=== PATIENT | female | born 1955 | race Caucasian/White ===

== ENCOUNTER → 2016-12-11 | Outpatient (CLI) | payer MEDICARE, OTHER ==
[~2016-12-11] MED LIST: ACET-93 PO; ASCO10006 PO; AZAT100T PO; BENLYSTA; CALC-140 PO; CHLO4TAB36 PO; DOCU100C37 PO; DOXY100C2 PO; FLEC100T PO; GABA-488 PO; HYDR-3812 PO; HYDR200T PO; IPRA3AMP IH; LORA-404 PO; METH750T3 PO; OMEP20TA33 PO; ONDA-42 SL; PRED5TAB PO; PSEU30TA37 PO; RT-ALBUINH IH; TRIM100T PO; WARF-47 PO; WARF-48 PO; cpap; oxygen; vit b12
--- OUTSIDE RECORDS SUMMARY | 2016-12-11 10:51 | XMS REPORT | Continuity of Care Document ---
Author Author [facility] Organization [facility] Address Unknown Phone Unavailable Care Team Providers Care C D Reactor Operator Name Role Phone NO, LOCAL PHYSICIAN PCP Unavailable Insurance Providers Payer Name Policy Number Subscriber Name Relationship Unknown Advance Directives Directive Response Recorded Date/Time Advance Directives No 02/27/15 8:57am Organ Donor No 02/27/15 8:57am Resuscitation Status Full Code 02/27/15 8:57am Problems Medical Problems Problem Onset Date Status Concussion without loss of consciousness Unknown Active Chest wall pain Unknown Active Nausea Unknown Active Medications Medication Dose Route Sig Days/Qty Instructions Order Date Discontinued Date Status Ondansetron Hcl 4 Mg SL EVERY 4HRS PRN NAUSEA/VOMITING 10 Qty FOR NAUSEA AND VOMITING 02/27/15 Active Social History Social History Problem Response Recorded Date/Time Alcohol Use Denies Use 02/27/2015 8:57am Recreational Drug Use No 02/27/2015 8:57am Recent Foreign Travel No 02/27/2015 8:57am Recent Infectious Disease Exposure No 02/27/2015 8:57am Hospitalization with Isolation Denies 02/27/2015 8:57am Smoking Status Never a Smoker 02/27/2015 8:57am Query Response Start Date Stop Date Smoking Status Never a Smoker Hospital Discharge Instructions No hospital discharge instructions. Plan of Care No plan of care. Functional Status No functional status results. Allergies, Adverse Reactions, Alerts Allergen Type Severity Reaction Status Last Updated NSAIDS (Non-Steroidal Anti-Inflammatory Drug) (L415690966) Allergy Unknown Active 02/27/15 Sulfa (Sulfonamide Antibiotics) (H891864029) Allergy Unknown Active Codeine Allergy Unknown Active 04/27/15 Cephalexin Allergy Unknown Active 02/27/15 Tramadol Allergy Unknown Active 02/27/15 Levofloxacin Allergy Unknown Active 02/27/15 ENVIRONMENTAL Allergy Unknown Active 02/27/15 PCN Allergy Unknown Active 02/27/15 Immunizations No immunization records. Vital Signs Acute Vital Signs Vital Response Date/Time Temperature (Fahrenheit) 98.1 degrees F (97.6 - 99.5) Temperature (Calculated Celsius) 36.69688 degrees C (36.4 - 37.5) Pulse Rate (adult) 88 bpm (60 - 90) Respiratory Rate 20 bpm (12 - 24) O2 Sat by Pulse Oximetry 92 % (88 - 100) Blood Pressure 149/72 mm Hg Pain Pain Intensity 9 Height (Feet) 5 feet Height (Inches) 6 inches Height (Calculated Centimeters) 167.212930 cm Weight (Pounds) 205 pounds Weight (Calculated Kilograms) 92.297103 kilograms Calculated BMI 33.08 Results Laboratory Results Test Name Result Units Flags Reference Collection Date/Time Result Date/ Time Comments White Blood Count 5.9 10^3/uL 4.3-11.0 02/27/2015 9:51am 02/27/2015 10: 02am Red Blood Count 4.23 10^6/uL L 4.35-5.85 02/27/2015 9:51am 02/27/2015 10: 02am Hemoglobin 11.0 G/DL L 11.5-16.0 02/27/2015 9:51am 02/27/2015 10:02am Hematocrit 37 % 35-52 02/27/2015 9:51am 02/27/2015 10:02am Mean Corpuscular Volume 87 FL 80-99 02/27/2015 9:51am 02/27/2015 10: 02am Mean Corpuscular Hemoglobin 26 PG 25-34 02/27/2015 9:51am 02/27/2015 10 :02am Mean Corpuscular Hemoglobin Concent 30 G/DL L 32-36 02/27/2015 9:51am 10:02am Red Cell Distribution Width 16.3 % H 10.0-14.5 02/27/2015 9:51am 2014 10:02am Platelet Count 288 10^3/uL 130-400 02/27/2015 9:02/27/2015 10: 02am Mean Platelet Volume 9.7 FL 7.4-10.4 02/27/2015 9:am 02/27/2015 10: 02am Neutrophils (%) (Auto) 79 % H 42-75 02/27/2015 9:02/27/2015 10:02am Lymphocytes (%) (Auto) 13 % 12-44 02/27/2015 9:am 02/27/2015 10:02am Monocytes (%) (Auto) 7 % 0-12 02/27/2015 9:am 02/27/2015 10:02am Eosinophils (%) (Auto) 1 % 0-10 02/27/2015 9:am 02/27/2015 10:02am Basophils (%) (Auto) 0 % 0-10 02/27/2015 9:02/27/2015 10:02am Neutrophils # (Auto) 4.7 X 10^3 1.8-7.8 02/27/2015 9:02/27/2015 10 :02am Lymphocytes # (Auto) 0.8 X 10^3 L 1.0-4.0 02/27/2015 9:02/27/2015 10 :02am Monocytes # (Auto) 0.4 X 10^3 0.0-1.0 02/27/2015 9:02/27/2015 10: 02am Eosinophils # (Auto) 0.1 10^3/uL 0.0-0.3 02/27/2015 9:02/27/2015 10:02am Basophils # (Auto) 0.0 10^3/uL 0.0-0.1 02/27/2015 9:02/27/2015 10: 02am Prothrombin Time 25.5 SEC H 12.2-14.7 02/27/2015 9:02/27/2015 10: 20am INR Comment 2.4 H 0.8-1.4 02/27/2015 9:02/27/2015 10:20am INTERPRETIVE DATA SUGGESTED THERAPEUTIC RANGE FOR INR'S: VENOUS THROMBOSIS, PULMONARY EMBOLISM, OR PREVENTION OF SYSTEMIC EMBOLISM (EG. IN ATRIAL FIBRILLATION): 2.0 - 3.0 MECHANICAL PROSTHETIC HEART VALVES: 2.5 - 3.5* *NOTE: INR'S UP TO 4.5 MAY BE NECESSARY IN SELECTED GROUPS OF HIGH RISK PATIENTS. [employer] CONSENSUS CONFERENCE ON ANTITHROMBOTIC THERAPY (2000). Activated Partial Thromboplast Time 42 SEC H 24-35 02/27/2015 9:51am 10:20am Sodium Level 141 MMOL/L 135-145 02/27/2015 9:51am 02/27/2015 10:28am Potassium Level 3.8 MMOL/L 3.6-5.0 02/27/2015 9:51am 02/27/2015 10: 28am Chloride Level 105 MMOL/L 98-107 02/27/2015 9:51am 02/27/2015 10:28am Carbon Dioxide Level 26 MMOL/L 21-32 02/27/2015 9:51am 02/27/2015 10: 28am Blood Urea Nitrogen 10 MG/DL 7-18 02/27/2015 9:51am 02/27/2015 10:28am Creatinine 0.99 MG/DL 0.60-1.30 02/27/2015 9:51am 02/27/2015 10:28am BUN/Creatinine Ratio 10 02/27/2015 9:51am 02/27/2015 10:28am Estimat Glomerular Filtration Rate 57 02/27/2015 9:51am 02/27/2015 10:28am GFR INTERPRETIVE DATA UNITS FOR ESTIMATED GFR (eGFR): mL/min/1.73 M2 REFERENCE RANGE FOR ESTIMATED GFR (eGFR) eGFR NORMAL eGFR >60 MODERATELY DECREASED eGFR 30-59 SEVERLY DECREASED eGFR 15-29 KIDNEY FAILURE <15 (OR DIALYSIS) Glucose Level 176 MG/DL H 70-105 02/27/2015 9:51am 02/27/2015 10:28am Calcium Level 9.3 MG/DL 8.5-10.1 02/27/2015 9:51am 02/27/2015 10:28am Total Bilirubin 0.5 MG/DL 0.1-1.0 02/27/2015 9:51am 02/27/2015 10:28am Alkaline Phosphatase 67 U/L 40-136 02/27/2015 9:51am 02/27/2015 10: 28am Aspartate Amino Transf (AST/SGOT) 18 U/L 5-34 02/27/2015 9:51am 2014 10:28am Alanine Aminotransferase (ALT/SGPT) 21 U/L 0-55 02/27/2015 9:51am 02/27 10:28am Total Protein 6.5 G/DL 6.4-8.2 02/27/2015 9:51am 02/27/2015 10:28am Albumin 3.7 G/DL 3.2-4.5 02/27/2015 9:51am 02/27/2015 10:28am Procedures No known history of procedures. Encounters Encounter Location Date/Time Departed Emergency Room [facility] 02/27/15 8:50am Recent Diagnosis
--- NOTE | 2016-12-11 15:18 | Diagnostic Imaging Report ---
PROCEDURE: CT chest without contrast. TECHNIQUE: Multiple contiguous axial images were obtained through the chest without the use of intravenous contrast. INDICATION: Dyspnea. COMPARISON: Comparison outside study loaded on our PACS dated 06/04/2016 is reviewed. FINDINGS: There are significant ground-glass opacities seen in the mid and lower lung zones, more prominent posteriorly, similar to 06/04/2016 exam. There is subpleural sparing. This is associated with interlobular septal thickening. The lack of significant change from 06/04/2016 and associated bronchiolectasis in the lower lobes is suggestive of interstitial scarring. Chronic inflammatory pneumonitis is a possibility. There are geographic areas of decreased density in the lungs which may relate to air trapping. There is no mass or suspicious nodule seen. The heart size is not enlarged. No pericardial or pleural effusion. The thoracic aorta is normal in caliber. No mediastinal mass. No significantly enlarged mediastinal or axillary lymph nodes seen. The arcenio are not opacified with contrast with no obvious soft tissue mass in the hilum seen. The osseous structures and sections in the upper abdomen appear grossly unremarkable. IMPRESSION: Lower lobe predominant ground-glass opacities and interlobular septal thickening with subpleural sparing seen without significant change from 06/04/2016 exam. Fibrotic components noted. The findings may relate to NSIP or chronic inflammatory pneumonitis with interstitial scarring. Correlate clinically. Dictated by: Dictated on workstation # [id number]
== END ==
LOC: RAD 10:48
PROVIDERS: ATTEND Nurse Practitioner Family
DX: R06.00 Dyspnea, unspecified (principal)
CPT/HCPCS: 71250

== ENCOUNTER 2016-12-30 05:41 | Outpatient (CLI) | payer MEDICARE, OTHER ==
[~2016-12-30] VITALS: Ht 167.6 cm; Wt 97.5 kg
[~2016-12-30 05:41] MED LIST changes: -BENLYSTA; -HYDR-3812 PO; -IPRA3AMP IH; -RT-ALBUINH IH; -cpap; -oxygen; -vit b12
--- OUTSIDE RECORDS SUMMARY | 2016-12-30 05:45 | XMS REPORT | Continuity of Care Document ---
Author Author [facility] Organization [facility] Address Unknown Phone Unavailable Care Team Providers Care Welder Journeyman Name Role Phone NO, LOCAL PHYSICIAN PCP [...] Status Last Updated NSAIDS (Non-Steroidal Anti-Inflammatory Drug) ([id number]) Allergy Unknown Active 02/27/15 Sulfa (Sulfonamide Antibiotics) ([id number]) Allergy Unknown Active Codeine Allergy Unknown Active 04/27/15 Cephalexin Allergy Unknown Active 02/27/15 Tramadol Allergy Unknown Active 02/27/15 Levofloxacin Allergy Unknown Active 02/27/15 ENVIRONMENTAL Allergy Unknown Active 02/27/15 PCN Allergy Unknown Active 02/27/15 Immunizations No immunization records. Vital Signs Acute Vital Signs Vital Response Date/Time Temperature (Fahrenheit) 98.1 degrees F (97.6 - 99.5) Temperature (Calculated Celsius) 36.72858 degrees C (36.4 - 37.5) Pulse Rate (adult) 88 bpm (60 - 90) Respiratory Rate 20 bpm (12 - 24) O2 Sat by Pulse Oximetry 92 % (88 - 100) Blood Pressure 149/72 mm Hg Pain Pain Intensity 9 Height (Feet) 5 feet Height (Inches) 6 inches Height (Calculated Centimeters) 167.485735 cm Weight (Pounds) 205 pounds Weight (Calculated Kilograms) 92.547898 kilograms Calculated BMI 33.08 Results Laboratory Results [...] SELECTED GROUPS OF HIGH RISK PATIENTS. [employer] CONSENSUS CONFERENCE ON [...] Encounter Location Date/Time Departed Emergency Room [facility] 02/27/15 8:50am Recent Diagnosis
== END 2016-12-30 13:55 ==
LOC: PREOP 05:41
PROVIDERS: ATTEND Internal Medicine Critical Care Medicine
DX: J44.9 Chronic obstructive pulmonary disease, unspecified (principal); M79.7 Fibromyalgia; E66.9 Obesity, unspecified; I27.2 Other secondary pulmonary hypertension

== ENCOUNTER 2017-01-01 06:50 | Day surgery (SDC) | payer MEDICARE, OTHER ==
[~2017-01-01] VITALS: Ht 167.6 cm; Wt 97.5 kg
--- OUTSIDE RECORDS SUMMARY | 2017-01-01 06:54 | XMS REPORT | Continuity of Care Document ---
Author Author [facility] Organization [facility] Address Unknown Phone Unavailable Care Team Providers Care Print Developer Automatic Name Role Phone JUAN C MENDEZ DO PCP Insurance Providers Payer Name Policy Number Subscriber Name Relationship Wps Medicare [id number] SmitaFannie L 18 Self / Same As Patient [employer] [id number] SmitaFannie L 18 Self / Same As Patient Advance Directives Directive Response Recorded Date/Time Advance Directives No 12/30/16 1:45pm Health Care Power of Cable Television Line Technician No 12/30/16 1:45pm Organ Donor No 03/27/16 9:04am Resuscitation Status Full Code 12/30/16 1:45pm Problems Active Problems Medical Problem Onset Date Status Chest wall pain Unknown Acute Concussion without loss of consciousness Unknown Acute Concussion without loss of consciousness Unknown Acute Immunocompromised state Unknown Acute Lupus Unknown Acute Nausea Unknown Acute Pneumonia Unknown Acute Sepsis Unknown Acute Urinary tract infection Unknown Acute Medications Current Home Medications Medication Dose Units Route Directions Days/Qty Instructions Start Date Acetaminophen 500 Mg 8128-3783 Mg Oral Four Times Daily as needed for Pain TAKES 4-5 (500 MG) TABLETS 03/27/16 Chlorpheniramine Maleate 4 Mg 4 Mg Oral Every 4-6 Hours as needed for Allergies 03/27/16 Pseudoephedrine Hcl 30 Mg 60 Mg Oral Every 4HRS as needed for Congestion 03/27/16 Calcium Carbonate/Vitamin D3 1 Each 1 Tab Oral Twice A Day 03/27/16 Ascorbic Acid 1,000 Mg 1,000 Mg Oral Daily 03/27/16 Docusate Sodium 100 Mg 100 Mg Oral Twice A Day 03/27/16 Doxycycline Hyclate 100 Mg 100 Mg Oral Twice A Day FILLED 03/26/16 #20 FOR A 10 DAY THERAPY 03/27/16 Trimethoprim 100 Mg 100 Mg Oral Every 6 Hours as needed for Nausea/ Vomiting 03/27/16 Lorazepam 0.5 Mg 0.5 Mg Oral Every 12 Hours 03/27/16 Warfarin Sodium 5 Mg 5 Mg Oral Daily 03/27/16 Warfarin Sodium 2 Mg 2 Mg Oral Daily 03/27/16 Prednisone 5 Mg 15 Mg Oral Daily TAKES 3 (5 MG) TABLETS 03/27/16 Methocarbamol 750 Mg 750 Mg Oral Three Times A Day as needed for Muscle Spasms 03/27/16 Flecainide Acetate 100 Mg 50 Mg Oral Twice A Day TAKES 1/2 OF A (100 MG ) TABLET 03/27/16 Gabapentin 300 Mg 600 Mg Oral Three Times A Day TAKES 2 (300 MG) TABLETS 03/27/16 Hydroxychloroquine Sulfate 200 Mg 200 Mg Oral Twice A Day 03/27/16 Omeprazole Magnesium 20 Mg 20 Mg Oral Twice A Day 03/27/16 Past Home Medications Medication Directions Ordered Status Ondansetron Hcl 4 Mg Tab, 4 Mg Sublingual Every 4HRS as needed for Nausea/ Vomiting 02/27/15 Discontinued Azathioprine 100 Mg Tablet, 100 Mg Oral Daily 03/27/16 Discontinued Social History Social History Problem Response Recorded Date/Time Alcohol Use Denies Use 03/27/2016 3:22pm Recreational Drug Use No 03/27/2016 3:22pm Recent Foreign Travel No 12/30/2016 1:44pm Recent Infectious Disease Exposure No 12/30/2016 1:44pm Sexually Transmitted Disease No 12/30/2016 1:45pm HIV/AIDS No 12/30/2016 1:45pm Smoking Status Never a Smoker 12/30/2016 1:45pm Recent Hopitalizations No 12/30/2016 1:45pm Sexually Transmitted Disease No 12/30/2016 1:45pm Query Response Start Date Stop Date Smoking Status Never a Smoker Hospital Discharge Instructions No hospital discharge instructions. Plan of Care Discharge Date 12/30/16 1:55pm Prescriptions See Medication Section Functional Status No functional status results. Allergies, Adverse Reactions, Alerts Allergen Type Severity Reaction Status Last Updated NSAIDS (Non-Steroidal Anti-Inflammatory Drug) ([id number]) Allergy Unknown Active 02/27/15 Penicillins ([id number]) Allergy Unknown Active 03/27/16 Sulfa (Sulfonamide Antibiotics) ([id number]) Allergy Unknown Active Codeine Allergy Unknown Active 02/27/15 Cephalexin Allergy Unknown Active 02/27/15 Tramadol Allergy Unknown Active 02/27/15 Levofloxacin Allergy Unknown Active 02/27/15 ENVIRONMENTAL Allergy Unknown Active 02/27/15 Immunizations No immunization records. Vital Signs Acute Vital Signs Vital Response Date/Time Height (Feet) 5 feet 12/30/2016 1:43pm Height (Inches) 6.00 inches 12/30/2016 1:43pm Height (Calculated Centimeters) 167.023353 cm 12/30/2016 1:43pm Weight (Pounds) 215 pounds 12/30/2016 1:43pm Weight (Ounces) 0.0 oz 12/30/2016 1:43pm Weight (Calculated Grams) 73246.36 gm 12/30/2016 1:43pm Weight (Calculated Kilograms) 97.928983 kilograms 12/30/2016 1:43pm Calculated BMI 34.7 12/30/2016 1:43pm Results No known relevant diagnostic tests, laboratory data and/or discharge summary. Procedures No known history of procedures. Encounters Encounter Location Arrival/Admit Date Discharge/Depart Date Attending Provider Departed Clinic [facility] 12/30/16 5:41am 12/30/16 1: 55pm FLORINDA KU DO Registered Clinic [facility] 12/11/16 10:48am BOYD SOLIS APRN
--- OUTSIDE RECORDS SUMMARY | 2017-01-01 06:54 | XMS REPORT | Continuity of Care Document ---
Author Author [facility] Organization [facility] Address Unknown Phone Unavailable Care Team Providers Care Dough Molder Name Role Phone JUAN C MENDEZ DO PCP Insurance Providers Payer Name Policy Number Subscriber Name Relationship Wps Medicare [id number] SmitaFannie L 18 Self / Same As Patient [employer] [id number] SmitaFannie L 18 Self / Same As Patient Advance Directives Directive Response Recorded Date/Time Advance Directives No 12/30/16 1:45pm Health Care Power of Streetcar Starter No 12/30/16 1:45pm Organ Donor No 03/27/16 [...] Days/Qty Instructions Start Date Acetaminophen 500 Mg 4540-6993 Mg Oral Four Times Daily as needed [...] Status Last Updated NSAIDS (Non-Steroidal Anti-Inflammatory Drug) ([id number]) Allergy Unknown Active 02/27/15 Penicillins ([id number]) Allergy Unknown Active 03/27/16 Sulfa (Sulfonamide Antibiotics) ([id number]) Allergy Unknown Active Codeine Allergy Unknown Active 02/27/15 Cephalexin Allergy Unknown Active 02/27/15 Tramadol Allergy Unknown Active 02/27/15 Levofloxacin Allergy Unknown Active 02/27/15 ENVIRONMENTAL Allergy Unknown Active 02/27/15 Immunizations No immunization records. Vital Signs Acute Vital Signs Vital Response Date/Time Height (Feet) 5 feet 12/30/2016 1:43pm Height (Inches) 6.00 inches 12/30/2016 1:43pm Height (Calculated Centimeters) 167.192903 cm 12/30/2016 1:43pm Weight (Pounds) 215 pounds 12/30/2016 1:43pm Weight (Ounces) 0.0 oz 12/30/2016 1:43pm Weight (Calculated Grams) 02958.36 gm 12/30/2016 1:43pm Weight (Calculated Kilograms) 97.176709 kilograms 12/30/2016 1:43pm Calculated BMI 34.7 12/30/2016 1:43pm Results No known relevant diagnostic tests, laboratory data and/or discharge summary. Procedures No known history of procedures. Encounters Encounter Location Arrival/Admit Date Discharge/Depart Date Attending Provider Departed Clinic [facility] 12/30/16 5:41am 12/30/16 1: 55pm FLORINDA KU DO Registered Clinic [facility] 12/11/16 10:48am BOYD SOLIS APRN
[2017-01-01] MEDS ORDERED: NS IV 500 ML 500 ML IV SCH (07:15)
[2017-01-01] MEDS ORDERED: NALOXONE 0.4 MG/ML 1 ML (NARCAN) VIAL IVP PRN (07:15)
[2017-01-01] MEDS ORDERED: FLUMAZENIL (ROMAZICON) 0.1 MG/ML 5 ML VIAL INJ PRN (07:15)
[2017-01-01] MEDS ORDERED: NS IV 500 ML 500 ML ONE (07:19)
[2017-01-01] MEDS ORDERED: LIDOCAINE 4% INJ (XYLOCAINE) 5ML AMP INH ONE (07:30)
--- NOTE | 2017-01-01 07:41 | Progress Note-Pre Operative ---
Pre-Operative Progress Note H&P Reviewed The H&P was reviewed, patient examined and no changes noted. Date H&P Reviewed: Jan 01, 2017 Time H&P Reviewed: 07:41 Pre-Operative Diagnosis: FLORINDA Blancas DO Jan 01, 2017 07:41
--- NOTE | 2017-01-01 07:42 | Pre-Op Note & Conscious Sedat ---
Pre-Operative Progress Note H&P Reviewed The H&P was reviewed, patient examined and no changes noted. Date H&P Reviewed: Jan 01, 2017 Time H&P Reviewed: 07:41 Conscious Sedation Pre-Proced Time Reviewed: 07:41 ASA Class: 3 Airway Mallampati Classification: (standing rock appropriate class) I. II. III, IV Lungs Heart ASA score ASA 1: a normal healthy patient ASA 2: a patient with a mild systemic disease (mid diabetes, controlled hypertension, obesity ASA 3: a patient with a severe systemic disease that limits activity (angina , COPD, prior Myocardial infarction) ASA 4: a patient with an incapacitating disease that is a constant threat to life (CHF, renal failure) ASA 5: a moribund patient not expected to survive 24 hrs. (ruptured aneurysm) ASA 6: a declared brain patient whose organs are being harvested. For emergent operations, add the letter E after the classification Grade 3 Sedation Plan: Analgesia, Amnesia, Plan communicated to team members, Discussed options with patient/fam, Discussed risks with patient/fam Note The patient is an appropriate candidate to undergo the planned procedure, sedation, and anesthesia. The patient immediately re-assessed prior to indication. FLORINDA KU DO Jan 01, 2017 07:42
[2017-01-01] MEDS ORDERED: RT-ALBUINH IH (07:47)
[2017-01-01] MEDS ORDERED: vit b12 (07:47)
[2017-01-01] MEDS ORDERED: HYDR-3812 PO (07:47)
[2017-01-01] MEDS ORDERED: IPRA3AMP IH (07:47)
[2017-01-01] MEDS ORDERED: oxygen (07:47)
[2017-01-01] MEDS ORDERED: BENLYSTA (07:47)
[2017-01-01] MEDS ORDERED: cpap (07:47)
[2017-01-01] MEDS ORDERED: MIDAZOLAM 2 MG/2 ML (VERSED) VIAL ONE ×3 (07:50)
[2017-01-01] MEDS ORDERED: fentaNYL INJECTION 100 MCG/2 ML AMP ONE ×2 (07:51)
[2017-01-01] MEDS: fentaNYL INJECTION 100 MCG/2 ML AMP IVP PRN ×2 (08:00→08:06)
[2017-01-01] MEDS: MIDAZOLAM 2 MG/2 ML (VERSED) VIAL IVP PRN ×2 (08:02→08:10)
--- NOTE | 2017-01-01 08:30 | Pulmonary Procedures ---
Pulmonary Procedures Date of Procedure Date of Service: Jan 01, 2017 Bronch Bronchoscopy with bronchoalveolar lavage (BAL), transbronchial washes and, brushes. Preop DX ILD Postop DX: same Complications: none After informed consent obtained and formal time out pt was sedated using Fentanyl and Versed. Bronchoscope was advanced through the right nare and vocal cords. 1% lidocaine was used to anesthetize vocal cords, epiglottis, angelica, and left/right main stem bronchus. An anatomical tour was undertaken down to the segmental bronchi bilaterally. No endobronchial lesions noted. From the LLL a bronchoalveolar lavage (BAL), transbronchial washes and, brushes were obtained. Pt tolerated procedure well. No complications noted. Stat CXR is pending. FLORINDA KU DO Jan 01, 2017 08:30
[2017-01-01 08:55] VITALS: BP 149/77
[2017-01-01] MEDS ORDERED: LIDOCAINE PF 1% 2 ML AMP INJ ONE ×2 (09:30→10:00)
[2017-01-01 09:39] VITALS: BP 150/74
[2017-01-01 09:45] VITALS: BP 137/68
--- NOTE | 2017-01-01 09:46 | Diagnostic Imaging Report ---
EXAMINATION: Portable supine radiograph of the chest. INDICATION: Post bronchoscopy. COMPARISON: 03/28/2016. FINDINGS: The heart size is mildly enlarged. There is mild interstitial thickening with no focal airspace opacity. There is no effusion or pneumothorax. The mediastinum and arcenio appear unremarkable. IMPRESSION: Cardiomegaly. Mild interstitial thickening. Dictated by: Dictated on workstation # [id number]
[2017-01-01 09:48] VITALS: BP 137/68
[2017-01-01] MEDS ORDERED: LIDOCAINE JELLY 2% (XYLOCAINE) 30 ML TUBE TOP ONE (10:00)
[2017-01-01] MEDS ORDERED: LIDOCAINE 4% INJ (XYLOCAINE) 5ML AMP INJ ONE (10:00)
--- NOTE | 2017-01-01 18:52 | Diagnostic Imaging Report ---
EXAMINATION: Intraoperative view of the chest. FINDINGS: Bronchoscopy. Provided fluoroscopy time of 29 seconds. IMPRESSION: Provided image demonstrates bronchoscope projecting over the left chest. Dictated by: Dictated on workstation # [id number]
== END 2017-01-01 10:04 | disposition home or self-care (01) ==
LOC: ENDO 06:50
PROVIDERS: ATTEND Internal Medicine Critical Care Medicine
DX: J84.9 Interstitial pulmonary disease, unspecified (principal)
CPT/HCPCS: 71010; 87070; 87077; 87101; 87116; 87205; 88112; 88305; 88312; 94640

== ENCOUNTER 2017-01-11 15:12 | Emergency (ER) | payer MEDICARE, OTHER ==
[~2017-01-11] VITALS: Ht 167.6 cm; Wt 97.5 kg
[~2017-01-11 15:12] MED LIST changes: +BENLYSTA; +HYDR-3812 PO; +IPRA3AMP IH; +RT-ALBUINH IH; +cpap; +oxygen; +vit b12
--- OUTSIDE RECORDS SUMMARY | 2017-01-11 15:18 | XMS REPORT | Continuity of Care Document ---
Author Author [facility] Organization [facility] Address Unknown Phone Unavailable Care Team Providers Care Electrical Subcontractor Name Role Phone JUAN C MENDEZ DO PCP Insurance Providers Payer Name Policy Number Subscriber Name Relationship Wps Medicare [id number] SmitaFannie L 18 Self / Same As Patient [employer] [id number] SmitaFannie L 18 Self / Same As Patient Advance Directives Directive Response Recorded Date/Time Advance Directives No 12/30/16 1:45pm Health Care Power of River Captain No 12/30/16 1:45pm Organ Donor No 03/27/16 [...] Days/Qty Instructions Start Date Acetaminophen 500 Mg 7374-1534 Mg Oral Four Times Daily as needed [...] Status Last Updated NSAIDS (Non-Steroidal Anti-Inflammatory Drug) ([id number]) Allergy Unknown Active 02/27/15 Penicillins ([id number]) Allergy Unknown Active 03/27/16 Sulfa (Sulfonamide Antibiotics) (S191132923) Allergy Unknown Active Codeine Allergy Unknown Active 02/27/15 Cephalexin Allergy Unknown Active 02/27/15 Tramadol Allergy Unknown Active 02/27/15 Levofloxacin Allergy Unknown Active 02/27/15 ENVIRONMENTAL Allergy Unknown Active 02/27/15 Immunizations No immunization records. Vital Signs Acute Vital Signs Vital Response Date/Time Height (Feet) 5 feet 12/30/2016 1:43pm Height (Inches) 6.00 inches 12/30/2016 1:43pm Height (Calculated Centimeters) 167.143077 cm 12/30/2016 1:43pm Weight (Pounds) 215 pounds 12/30/2016 1:43pm Weight (Ounces) 0.0 oz 12/30/2016 1:43pm Weight (Calculated Grams) 64330.36 gm 12/30/2016 1:43pm Weight (Calculated Kilograms) 97.481488 kilograms 12/30/2016 1:43pm Calculated BMI 34.7 12/30/2016 1:43pm Results No known relevant diagnostic tests, laboratory data and/or discharge summary. Procedures No known history of procedures. Encounters Encounter Location Arrival/Admit Date Discharge/Depart Date Attending Provider Departed Clinic [facility] 12/30/16 5:41am 12/30/16 1: 55pm FLORINDA KU DO Registered Clinic [facility] 12/11/16 10:48am BOYD SOLIS APRN
--- NOTE | 2017-01-11 15:49 | ED Lower Extremity ---
General Chief Complaint: Lower Extremity Stated Complaint: L LEG SWELLING, PAIN, HX OF BLOOD CLOTS Source: patient Exam Limitations: no limitations History of Present Illness Time seen by provider: 15:48 Initial Comments to ER with c/o L leg swelling and soreness x1 week. History of DVT. She is on warfarin for this and she has an inferior vena cava filter. She restarted her Coumadin 8 days ago after stopping it briefly for bronchoscopy for her COPD with Dr. Storey. Onset: last week Severity: moderate Pain/Injury Location: left leg Method of Injury: unknown Allergies and Home Medications Allergies Coded Allergies: NSAIDS (Non-Steroidal Anti-Inflamma (Unverified Allergy, Unknown, 02/27/15) Penicillins (Verified Allergy, Unknown, 03/27/16) Sulfa (Sulfonamide Antibiotics) (Unverified Allergy, Unknown, 02/27/15) cephalexin (Unverified Allergy, Unknown, 02/27/15) codeine (Unverified Allergy, Unknown, 02/27/15) levofloxacin (Unverified Allergy, Unknown, 02/27/15) tramadol (Unverified Allergy, Unknown, 02/27/15) Uncoded Allergies: ENVIRONMENTAL (Allergy, Unknown, 02/27/15) Home Medications (Reported) (Reported) (Reported) (Reported) Acetaminophen 500 Mg Tablet 2,000-2,500 MG PO QID PRN PRN PAIN (Reported) TAKES 4-5 (500 MG) TABLETS Albuterol Sulfate 1 Puff Puff 2 PUFF IH Q6H (Reported) 1 PUFF = 90 MCG Ascorbic Acid 1,000 Mg Tablet 500 MG PO DAILY (Reported) Calcium Carbonate/Vitamin D3 1 Each Tablet 1 TAB PO BID (Reported) Chlorpheniramine Maleate 4 Mg Tablet 4 MG PO EVERY 4-6 HOURS PRN PRN ALLERGIES ( Reported) Docusate Sodium 100 Mg Capsule 100 MG PO BID (Reported) Flecainide Acetate 100 Mg Tablet 50 MG PO BID (Reported) TAKES 1/2 OF A (100 MG) TABLET Gabapentin 300 Mg Capsule 600 MG PO TID (Reported) TAKES 2 (300 MG) TABLETS Hydrocodone/Acetaminophen 1 Each Tablet 1 EACH PO Q4H PRN PRN PAIN (Reported) Hydroxychloroquine Sulfate 200 Mg Tablet 200 MG PO BID (Reported) Ipratropium/Albuterol Sulfate 3 Ml Ampul.neb 3 ML IH Q4H PRN PRN SHORTNESS OF BREATH (Reported) Lorazepam 0.5 Mg Tablet 0.5 MG PO Q12H (Reported) Methocarbamol 750 Mg Tablet 750 MG PO TID PRN PRN MUSCLE SPASMS (Reported) Omeprazole Magnesium 20 Mg Tablet.dr 20 MG PO BID (Reported) Prednisone 5 Mg Tablet 15 MG PO DAILY (Reported) TAKES 3 (5 MG) TABLETS Pseudoephedrine HCl 30 Mg Tablet 60 MG PO Q4H PRN PRN CONGESTION (Reported) Trimethoprim 100 Mg Tablet 300 MG PO Q6H PRN PRN NAUSEA/VOMITING (Reported) Constitutional: see HPINo chills, No fever EENTM: see HPI Respiratory: no symptoms reported Cardiovascular: no symptoms reported Genitourinary: no symptoms reported Musculoskeletal: see HPI other (leg swelling) Skin: no symptoms reported Psychiatric/Neurological: No Symptoms Reported Past Mzhahde-Ievspl-Wsniqr Hx Patient Social History Recent Foreign Travel: No Contact w/Someone Who Travel: No Recent Hopitalizations: No Immunizations Up To Date Date of Pneumonia Vaccine: Nov 03, 2015 Date of Influenza Vaccine: Aug 12, 2016 Seasonal Allergies Seasonal Allergies: Yes Surgeries HX Surgeries: Yes (LUNG BIOPSY (LEFT), HEART CATH-NO STENTS) Surgeries: Abdominal, Adenoidectomy, Gallbladder, Hysterectomy, Tonsillectomy Respiratory Hx Respiratory Disorders: Yes (O2 2L-3L) Respiratory Disorders: Pulmonary Embolism, Sleep Apnea Cardiovascular Hx Cardiac Disorders: Yes (ARRTHMYIA, PULMONARY HYPERTENTION ) Cardiac Disorders: Hypertension Neurological Hx Neurological Disorders: Yes (SINUS RELATED) Neurological Disorders: Headaches /Migraines Reproductive System Hx Reproductive Disorders: No Sexually Transmitted Disease: No HIV/AIDS: No 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 Goodwin in [place]) Musculoskeletal Disorders: Arthritis, Fibromyalgia Endocrine Hx Endocrine Disorders: Yes (DM - PREDNISONE RELATED ) Endocrine Disorders: Lupus HEENT HX ENT Disorders: Yes (GLASSES) Loss of Vision: Bilateral Hearing Impairment: Denies Cancer Hx Cancer: No Psychosocial Hx Psychiatric Problems: Yes Behavioral Health Disorders: Anxiety, Depression Integumentary HX Skin/Integumentary Disorder: No Blood Transfusions Hx Blood Disorders: No (ANEMIA) Adverse Reaction to a Blood Tr: No Family Medical History Family Medial History: Hypertension Myocardial infarction Physical Exam Vital Signs Vital Sign - Last 12Hours 01/11/17 15:45 Temp 98.9 Pulse 81 Resp 20 B/P 183/84 Pulse Ox 97 O2 Delivery Nasal Cannula O2 Flow Rate 2 Capillary Refill : General Appearance: WD/WN no apparent distress other (very pleasant) HEENT: PERRL/EOMI Neck: non-tender full range of motion Cardiovascular: regular rate, rhythm no murmur Respiratory: normal breath sounds no respiratory distress no accessory muscle use Gastrointestinal: normal bowel sounds non tender soft Hips: bilateral hip non-tender, bilateral hip normal inspection, bilateral hip normal range of motion Legs: left leg soft tissue tenderness, left leg other (no erythema, maybe trace swelling to LLE) Knees: bilateral knee non-tender, bilateral knee normal inspection, bilateral knee normal range of motion Ankles: bilateral ankle non-tender, bilateral ankle normal inspection, bilateral ankle normal range of motion Feet: bilateral foot non-tender, bilateral foot normal inspection, bilateral foot normal range of motion Neurologic/Psychiatric: alert normal mood/affect oriented x 3 Skin: normal color warm/dry Progress/Results/Core Measures Results/Orders Lab Results Laboratory Tests Test 01/11/17 16:10 Range/Units Anion Gap 15 H 5-14 MMOL/L BUN/Creatinine Ratio 12 Basophils # (Auto) 0.0 0.0-0.1 10^3/uL Basophils (%) (Auto) 0 0-10 % Blood Urea Nitrogen 11 7-18 MG/DL Calcium Level 9.1 8.5-10.1 MG/DL Carbon Dioxide Level 22 21-32 MMOL/L Chloride Level 101 98-107 MMOL/L Creatinine 0.93 0.60-1.30 MG/DL Eosinophils # (Auto) 0.0 0.0-0.3 10^3/uL Eosinophils (%) (Auto) 0 0-10 % Estimat Glomerular Filtration Rate > 60 Glucose Level 268 H 70-105 MG/DL Hematocrit 33 L 35-52 % Hemoglobin 9.9 L 11.5-16.0 G/DL Hypochromasia SLIGHT INR Comment 1.5 H 0.8-1.4 Lymphocytes # (Auto) 0.5 L 1.0-4.0 X 10^3 Lymphocytes % (Manual) 7 % Lymphocytes (%) (Auto) 5 L 12-44 % Mean Corpuscular Hemoglobin 25 25-34 PG Mean Corpuscular Hemoglobin Concent 31 L 32-36 G/DL Mean Corpuscular Volume 83 80-99 FL Mean Platelet Volume 10.1 7.4-10.4 FL Monocytes # (Auto) 0.2 0.0-1.0 X 10^3 Monocytes (%) (Auto) 2 0-12 % Neutrophils # (Auto) 8.7 H 1.8-7.8 X 10^3 Neutrophils % (Manual) 93 % Neutrophils (%) (Auto) 93 H 42-75 % Platelet Count 227 130-400 10^3/uL Potassium Level 4.5 3.6-5.0 MMOL/L Prothrombin Time 17.9 H 12.2-14.7 SEC Red Blood Count 3.90 L 4.35-5.85 10^6/uL Red Cell Distribution Width 17.6 H 10.0-14.5 % Sodium Level 138 135-145 MMOL/L White Blood Count 9.4 4.3-11.0 10^3/uL My Orders Orders-DOMINGO WEEKS APRN Us Venous Lower Ext Lt (01/11/17 15:40) Cbc With Automated Diff (01/11/17 16:00) Protime With Inr (01/11/17 16:00) Basic Metabolic Panel (01/11/17 16:03) Manual Differential (01/11/17 16:10) Enoxaparin Injection (Lovenox Injection) (01/11/17 17:15) Medications Given in ED Current Medications Medications Dose Ordered Sig/Nata Route Start Time Stop Time Status Last Admin Dose Admin Enoxaparin Sodium 100 mg ONCE ONCE SC 01/11/17 17:15 01/11/17 17:16 DC 01/11/17 17:21 100 MG Vital Signs/I&O Vital Sign - Last 12Hours 01/11/17 01/11/17 15:45 17:26 Temp 98.9 98.9 Pulse 81 81 Resp 20 20 B/P 183/84 Pulse Ox 97 97 O2 Delivery Nasal Cannula O2 Flow Rate 2 2 Diagnostic Imaging Diagonstic Imaging: Xray Comments NAME: FANNIE RICKETTS MED REC#: [id number] PT STATUS: REG ER : 1955 PHYSICIAN: DOMINGO WEEKS APRN ADMIT DATE: 01/11/17/ER Draft Date of Exam:01/11/17 US VENOUS LOWER EXT LT PROCEDURE: US left lower extremity venous. TECHNIQUE: Multiple real-time grayscale images were obtained over the left lower extremity in various projections. Additional duplex Doppler and color Doppler images were also obtained. INDICATION: Left calf pain. Has an IVC filter. COMPARISON: None. FINDINGS: The left common femoral vein appears patent and compressible without visible thrombus. There appears to be non-occlusive thrombus within the distal superficial femoral vein and popliteal veins. There is also thrombus within the greater saphenous vein in the lower leg in the region of the area of patient's pain. IMPRESSION: There is deep venous thrombosis in the popliteal vein and extending to the level of the distal superficial femoral vein. No thrombus is seen within the left common femoral vein. There is also superficial thrombophlebitis in the distal greater saphenous vein. Report was called to Neida (For Domingo Weeks APRN) in the [facility] ER at 4:14 p.m., by jonathan. Dictated on workstation # [id number] Dict: 01/11/17 1604 Trans: 01/11/17 1617 JONATHAN [id number] Interpreted by: KANA FIERRO DO Electronically signed by: Departure Communication Progress Notes I discussed the plan with Dr. Boswell. Given that she has a vena cava filter and is slightly sub-therapeutic on INR we will do 1 dose of Lovenox and increase her dose of Coumadin Impression Impression: Primary Impression: DVT (deep venous thrombosis) Qualified Code: I82.432 - Acute embolism and thrombosis of left popliteal vein Disposition: HOME, SELF-CARE Condition: Stable Departure-Patient Inst. Decision time for Depature: 16:21 Referrals: JUAN C MNEDEZ DO (PCP/Family) Primary Care Physician Patient Instructions: How to Prevent Blood Clots Add. Discharge Instructions: 1. Increase your Coumadin dose tonight only to 10 mg then resume her normal dose tomorrow 2. Call your doctor on Friday morning for further guidance on your Coumadin dosing 3. Return to ER for any concerns All discharge instructions reviewed with patient and/or family. Voiced understanding. DOMINGO WEEKS APRN Jan 11, 2017 15:49
--- NOTE | 2017-01-11 16:17 | Diagnostic Imaging Report ---
PROCEDURE: US left lower extremity venous. TECHNIQUE: Multiple real-time grayscale images were obtained over the left lower extremity in various projections. Additional duplex Doppler and color Doppler images were also obtained. INDICATION: Left calf pain. Has an IVC filter. COMPARISON: None. FINDINGS: The left common femoral vein appears patent and compressible without visible thrombus. There appears to be non-occlusive thrombus within the distal superficial femoral vein and popliteal veins. There is also thrombus within the greater saphenous vein in the lower leg in the region of the area of patient's pain. IMPRESSION: There is deep venous thrombosis in the popliteal vein and extending to the level of the distal superficial femoral vein. No thrombus is seen within the left common femoral vein. There is also superficial thrombophlebitis in the distal greater saphenous vein. Report was called to Neida (For Kyle Weeks APRN) in the [facility] ER at 4:14 p.m., by gregory. Dictated by: Dictated on workstation # [id number]
[2017-01-11 16:20] LABS: BASOPHILS % (AUTO) 0 % (0-10); EOSINOPHILS % (AUTO) 0 % (0-10); LYMPHOCYTES # (AUTO) 0.5 X 10^3 (1.0-4.0); LYMPHOCYTES % (AUTO) 5 % (12-44); MEAN CORPUSCULAR HEMOGLOBIN 25 PG (25-34); MEAN CORPUSCULAR HGB CONC 31 G/DL (32-36); MEAN CORPUSCULAR VOLUME 83 FL (80-99); MEAN PLATELET VOLUME 10.1 FL (7.4-10.4); MONOCYTES # (AUTO) 0.2 X 10^3 (0.0-1.0); MONOCYTES % (AUTO) 2 % (0-12); NEUTROPHILS # (AUTO) 8.7 X 10^3 (1.8-7.8); NEUTROPHILS % (AUTO) 93 % (42-75); PLATELET COUNT 227 10^3/uL (130-400); RED CELL DISTRIBUTION WIDTH 17.6 % (10.0-14.5); WHITE BLOOD COUNT 9.4 10^3/uL (4.3-11.0)
[2017-01-11 16:39] LABS: INR 1.5 (0.8-1.4); PROTHROMBIN TIME PATIENT 17.9 SEC (12.2-14.7)
[2017-01-11 16:48] LABS: ANION GAP 15 MMOL/L (5-14); BLOOD UREA NITROGEN 11 MG/DL (7-18); BUN/CREATININE RATIO 12; CALCIUM 9.1 MG/DL (8.5-10.1); CARBON DIOXIDE 22 MMOL/L (21-32); CHLORIDE 101 MMOL/L (98-107); CREATININE SERUM 0.93 MG/DL (0.60-1.30); GFR ESTIMATED > 60; GLUCOSE 268 MG/DL (70-105); HYPOCHROMASIA SLIGHT; LYMPHOCYTES % (MANUAL) 7 %; NEUTROPHILS % (MANUAL) 93 %; POTASSIUM 4.5 MMOL/L (3.6-5.0); SODIUM 138 MMOL/L (135-145)
[2017-01-11] MEDS ORDERED: ENOXAPARIN 100 MG/1 ML (LOVENOX) SYR SC ONE (17:15)
[2017-01-11 17:26] VITALS: BP 183/84
== END 2017-01-11 17:26 | disposition home or self-care (01) ==
LOC: EDUNIT# 15:12 → ER 15:14
DX: I82.432 Acute embolism and thrombosis of left popliteal vein (principal); I10 Essential (primary) hypertension; J44.9 Chronic obstructive pulmonary disease, unspecified; Z79.01 Long term (current) use of anticoagulants; Z86.711 Personal history of pulmonary embolism; Z95.828 Presence of other vascular implants and grafts
CPT/HCPCS: 36415; 80048; 85007; 85027; 85610; 96372; 99283

== ENCOUNTER 2017-06-25 08:30 | Outpatient (RCR) | payer MEDICARE, OTHER | END 2017-07-29 09:49 | disposition home or self-care (01) | PROVIDERS: ATTEND Nurse Practitioner | DX: M54.41 Lumbago with sciatica, right side (principal); G89.29 Other chronic pain ==

== ENCOUNTER 2018-11-11 17:53 | Emergency (ER) | payer MEDICARE, OTHER ==
[~2018-11-11] VITALS: Ht 167.6 cm; Wt 95.3 kg
[~2018-11-11 17:53] MED LIST changes: +ACHD5005 PO; -HYDR-3812 PO; -HYDR200T PO; +HYDR200T78 PO; -IPRA3AMP IH; +IPRA3AMP31 IH
--- OUTSIDE RECORDS SUMMARY | 2018-11-11 17:59 | XMS REPORT | Continuity of Care Document ---
Author Author [facility] Organization [facility] Address Unknown Phone Unavailable Allergies Active Description Code Type Severity Reaction Onset Reported/Identified Relationship to Patient Clinical Status Yes No Known Drug Allergies [id number] Drug Allergy Unknown N/A 04/21/2012 Yes cephalexin [id number] Drug Allergy Unknown N/A 02/27/2015 Yes codeine [id number] Drug Allergy Unknown N/A 02/27/2015 Yes ENVIRONMENTAL ENVIRONMENTAL Unknown N/A 02/27/2015 Yes levofloxacin [id number] Drug Allergy Unknown N/A 02/27/2015 Yes NSAIDS (Non-Steroidal Anti-Inflamma [id number] Drug Allergy Unknown N/A Yes PCN PCN Unknown N/ A 02/27/2015 Yes Sulfa (Sulfonamide Antibiotics) [id number] Drug Allergy Unknown N/A 2014 Yes tramadol [id number] Drug Allergy Unknown N/A 02/27/2015 Yes Penicillins [id number] Drug Allergy Unknown N/A 03/27/2016 Medications There is no data. Problems Date Dx Coded Attending Type Code Diagnosis Diagnosed By SANTOSH FROST [employer]ERN AND [employer]TEMPORARY ART CURATOR Ot G89.29 OTHER CHRONIC PAIN SANTOSH FROST [facility] Ot M54.41 LUMBAGO WITH SCIATICA, RIGHT SIDE 02/27/2015 FERNANDO EVANS, TOREY Parks Ot 786.52 PAINFUL RESPIRATION 02/27/2015 TOREY KING MD Ot 787.02 NAUSEA ALONE 02/27/2015 TOREY KING MD Ot 850.9 CONCUSSION NOS 02/27/2015 TOREY KING MD Ot 959.01 HEAD INJURY, NOS 02/27/2015 TOREY KING MD Ot E000.8 OTHER EXTERNAL CAUSE STATUS 02/27/2015 TOREY KING MD Ot E928.9 ACCIDENT NOS 03/28/2016 THUY TSANG DO Ot E86.0 DEHYDRATION 03/28/2016 THUY TSANG DO Ot G47.33 OBSTRUCTIVE SLEEP APNEA (ADULT) (PEDIATR 03/28/2016 THUY TSANG DO Ot I10 ESSENTIAL (PRIMARY) HYPERTENSION 03/28/2016 THUY TSANG DO Ot J18.9 PNEUMONIA, UNSPECIFIED ORGANISM 03/28/2016 THUY TSANG DO Ot J44.9 CHRONIC OBSTRUCTIVE PULMONARY DISEASE, U 03/28/2016 THUY TSANG DO Ot J45.909 UNSPECIFIED ASTHMA, UNCOMPLICATED 03/28/2016 THUY TSANG DO Ot M32.13 LUNG INVOLVEMENT IN SYSTEMIC LUPUS ERYTH 03/28/2016 THUY TSANG DO Ot M79.7 FIBROMYALGIA 03/28/2016 THUY TSANG DO Ot R09.02 HYPOXEMIA 03/28/2016 THUY TSANG DO Ot Z79.01 CMS EXPERT (CURRENT) USE OF ANTICOAGULANT 03/28/2016 THUY TSANG DO Ot Z79.52 CMS EXPERT (CURRENT) USE OF SYSTEMIC STER 03/28/2016 THUY TSANG DO Ot Z79.899 OTHER ASSISTED (CURRENT) DRUG THERAPY 03/28/2016 THUY TSANG DO Ot Z86.711 PERSONAL HISTORY OF PULMONARY EMBOLISM 03/29/2016 THUY TSANG DO Ot A41.9 SEPSIS, UNSPECIFIED ORGANISM 03/29/2016 THUY TSANG DO Ot B96.89 OTH BACTERIAL AGENTS THE CAUSE OF DIS 03/29/2016 THUY TSANG DO Ot E86.0 DEHYDRATION 03/29/2016 THUY TSANG DO Ot G47.33 OBSTRUCTIVE SLEEP APNEA (ADULT) (PEDIATR 03/29/2016 THUY TSANG DO Ot I10 ESSENTIAL (PRIMARY) HYPERTENSION 03/29/2016 THUY TSANG DO Ot J18.9 PNEUMONIA, UNSPECIFIED ORGANISM 03/29/2016 THUY TSANG DO Ot J44.0 CHRONIC OBSTRUCTIVE PULMON DISEASE W ACU 03/29/2016 THUY TSANG DO Ot J44.9 CHRONIC OBSTRUCTIVE PULMONARY DISEASE, U 03/29/2016 THUY TSANG DO Ot J45.909 UNSPECIFIED ASTHMA, UNCOMPLICATED 03/29/2016 THUY TSANG DO Ot M32.13 LUNG INVOLVEMENT IN SYSTEMIC LUPUS ERYTH 03/29/2016 THUY TSANG DO Ot M79.7 FIBROMYALGIA 03/29/2016 THUY TSANG DO Ot R09.02 HYPOXEMIA 03/29/2016 THUY TSANG DO Ot R50.2 DRUG INDUCED FEVER 03/29/2016 THUY TSANG DO Ot T45.1X5A ADVERSE EFFECT OF ANTINEOPLASTIC AND IMM 03/29/2016 THUY TSANG DO Ot Z79.01 ASSISTED (CURRENT) USE OF ANTICOAGULANT 03/29/2016 THUY TSANG DO Ot Z79.52 ASSISTED (CURRENT) USE OF SYSTEMIC STER 03/29/2016 THUY TSANG DO Ot Z79.899 OTHER ASSISTED (CURRENT) DRUG THERAPY 03/29/2016 THUY TSANG DO Ot Z86.711 PERSONAL HISTORY OF PULMONARY EMBOLISM 12/12/2016 BOYD SOLIS APRN Ot R06.00 DYSPNEA, UNSPECIFIED 12/31/2016 FLORINDA KU DO Ot E66.9 OBESITY, UNSPECIFIED 12/31/2016 FLORINDA KU DO Ot I27.2 OTHER SECONDARY PULMONARY HYPERTENSION 12/31/2016 FLORINDA KU DO Ot J44.9 CHRONIC OBSTRUCTIVE PULMONARY DISEASE, U 12/31/2016 FLORINDA KU DO Ot M79.7 FIBROMYALGIA 01/01/2017 FLORINDA KU DO Ot J84.9 INTERSTITIAL PULMONARY DISEASE, UNSPECIF 01/02/2017 BOYD SOLIS APRN Ot R06.00 DYSPNEA, UNSPECIFIED 01/02/2017 FLORINDA KU DO Ot J84.9 INTERSTITIAL PULMONARY DISEASE, UNSPECIF 01/07/2017 FLORINDA KU DO, Ot J84.9 INTERSTITIAL PULMONARY DISEASE, UNSPECIF 01/11/2017 DOMINGO OROSCO APRN Ot I10 ESSENTIAL (PRIMARY) HYPERTENSION 01/11/2017 DOMINGO OROSCO APRN Ot I82.432 ACUTE EMBOLISM AND THROMBOSIS OF LEFT PO 01/11/2017 DOMINGO OROSCO APRN Ot J44.9 CHRONIC OBSTRUCTIVE PULMONARY DISEASE, U 01/11/2017 DOMINGO OROSCO APRN Ot R22.42 LOCALIZED SWELLING, MASS AND LUMP, LEFT 01/11/2017 DOMINGO OROSCO APRN Ot Z79.01 ASSISTED (CURRENT) USE OF ANTICOAGULANT 01/11/2017 DOMINGO OROSCO APRN Ot Z86.711 PERSONAL HISTORY OF PULMONARY EMBOLISM 01/11/2017 DOMINGO OROSCO APRN Ot Z95.828 PRESENCE OF OTHER VASCULAR IMPLANTS AND 01/13/2017 DOMINGO OROSCO APRN Ot I10 ESSENTIAL (PRIMARY) HYPERTENSION 01/13/2017 DOMINGO OROSCO APRN Ot I82.432 ACUTE EMBOLISM AND THROMBOSIS OF LEFT PO 01/13/2017 DOMINGO OROSCO APRN Ot J44.9 CHRONIC OBSTRUCTIVE PULMONARY DISEASE, U 01/13/2017 DOMINGO OROSCO APRN Ot R22.42 LOCALIZED SWELLING, MASS AND LUMP, LEFT 01/13/2017 DOMINGO OROSCO APRN Ot Z79.01 CMS EXPERT (CURRENT) USE OF ANTICOAGULANT 01/13/2017 DOMINGO OROSCO APRN Ot Z86.711 PERSONAL HISTORY OF PULMONARY EMBOLISM 01/13/2017 DOMINGO OROSCO APRN Ot Z95.828 PRESENCE OF OTHER VASCULAR IMPLANTS AND 02/04/2017 FLORINDA KU DO Ot J84.9 INTERSTITIAL PULMONARY DISEASE, UNSPECIF 05/29/2017 SANTOSH FROST [employer] AND [employer]TEMPORARY ART CURATOR Ot G89.29 OTHER CHRONIC PAIN 05/29/2017 SANTOSH FROST MODERN AND CONTEMPORARY ART CURATOR Ot M54.40 LUMBAGO WITH SCIATICA, UNSPECIFIED SIDE 05/29/2017MarchFROSTSANTOSH ZULUAGA MODERN AND CONTEMPORARY ART CURATOR Ot G89.29 OTHER CHRONIC PAIN 05/29/2017 SANTOSH FROST MODERN AND CONTEMPORARY ART CURATOR Ot M54.40 LUMBAGO WITH SCIATICA, UNSPECIFIED SIDE 07/01/2017 SANTOSH FROST [employer] AND CONTEMPORARY ART CURATOR Ot G89.29 OTHER CHRONIC PAIN 07/01/2017MarchFROSTSANTOSH ZULUAGA MODERN AND CONTEMPORARY ART CURATOR Ot M54.40 LUMBAGO WITH SCIATICA, UNSPECIFIED SIDE Procedures There is no data. Results Test Result Range Sputum Gram stain - 01/01/17 08:15 GRAM STAIN SPUTUM NO WBC'S OBSERVED NRG Bacteria identification in bronchial specimen by aerobe culture - 01/01/17 08: 15 QUANTITY OF GROWTH Scant Growth NRG Bacteria identification in bronchial specimen by aerobe culture [id number] NRG FTX;REPORTABLE (SINGLE COLONY) NRG Sputum Gram stain - 01/01/17 08:15 GRAM STAIN SPUTUM RARE GRAM POSITIVE COCCI NRG Bacteria identification in bronchial specimen by aerobe culture - 01/01/17 08: 15 QUANTITY OF GROWTH Moderate Growth NRG MRSA AGAR Screening test for MRSA is NEGATIVE (Final to follow) NRG Bacteria identification in bronchial specimen by aerobe culture [id number] NRG FTX;REPORTABLE NO FURTHER STUDIES UNLESS REQUESTED NRG Fungus culture - 01/01/17 08:15 FUNGUS REPORT NO FUNGUS GROWTH OBSERVED NRG Fungus culture - 01/01/17 08:15 FUNGUS REPORT NO FUNGUS GROWTH OBSERVED NRG Mycobacterium species detection by organism specific culture - 01/01/17 08:15 Mycobacterium species detection by organism specific culture TNP NRG Complete blood count (CBC) with automated white blood cell (WBC) differential - 01/11/17 16:10 Blood leukocytes automated count (number/volume) 9.4 10*3/uL 4.3-11.0 Blood erythrocytes automated count (number/volume) 3.90 10*6/uL 4.35-5.85 Venous blood hemoglobin measurement (mass/volume) 9.9 g/dL 11.5-16.0 Blood hematocrit (volume fraction) 33 % 35-52 Automated erythrocyte mean corpuscular volume 83 [foz_us] 80-99 Automated erythrocyte mean corpuscular hemoglobin (mass per erythrocyte) 25 pg 25-34 Automated erythrocyte mean corpuscular hemoglobin concentration measurement ( mass/volume) 31 g/dL 32-36 Automated erythrocyte distribution width ratio 17.6 % 10.0-14.5 Automated blood platelet count (count/volume) 227 10*3/uL 130-400 Automated blood platelet mean volume measurement 10.1 [foz_us] 7.4-10.4 Automated blood neutrophils/100 leukocytes 93 % 42-75 Automated blood lymphocytes/100 leukocytes 5 % 12-44 Blood monocytes/100 leukocytes 2 % 0-12 Automated blood eosinophils/100 leukocytes 0 % 0-10 Automated blood basophils/100 leukocytes 0 % 0-10 Blood neutrophils automated count (number/volume) 8.7 10*3 1.8-7.8 Blood lymphocytes automated count (number/volume) 0.5 10*3 1.0-4.0 Blood monocytes automated count (number/volume) 0.2 10*3 0.0-1.0 Automated eosinophil count 0.0 10*3/uL 0.0-0.3 Automated blood basophil count (count/volume) 0.0 10*3/uL 0.0-0.1 Blood manual differential performed detection - 01/11/17 16:10 Manual blood segmented neutrophils/100 leukocytes 93 % NRG Manual blood lymphocytes/100 leukocytes 7 % NRG Blood hypochromia detection by light microscopy SLIGHT NRG Whole blood basic metabolic panel - 01/11/17 16:10 Serum or plasma sodium measurement (moles/volume) 138 mmol/L 135-145 Serum or plasma potassium measurement (moles/volume) 4.5 mmol/L 3.6-5.0 Serum or plasma chloride measurement (moles/volume) 101 mmol/L 98-107 Carbon dioxide 22 mmol/L 21-32 Serum or plasma anion gap determination (moles/volume) 15 mmol/L 5-14 Serum or plasma urea nitrogen measurement (mass/volume) 11 mg/dL 7-18 Serum or plasma creatinine measurement (mass/volume) 0.93 mg/dL 0.60-1.30 Serum or plasma urea nitrogen/creatinine mass ratio 12 NRG Serum or plasma creatinine measurement with calculation of estimated glomerular filtration rate > NRG Serum or plasma glucose measurement (mass/volume) 268 mg/dL 70-105 Serum or plasma calcium measurement (mass/volume) 9.1 mg/dL 8.5-10.1 PT panel in platelet poor plasma by coagulation assay - 01/11/17 16:10 Prothrombin time (PT) in platelet poor plasma by coagulation assay 17.9 s 12.2-14.7 INR in platelet poor plasma or blood by coagulation assay 1.5 0.8-1.4 Encounters ACCT No. Visit Date/Time Discharge Status Pt. Type Provider Facility Loc./Unit Complaint [id number] 06/25/2017 08:30:00 07/29/2017 09:49:00 DIS Outpatient SANTOSH FROST [facility] REHAB CHRONIC LOW BACKPAIN WITH SCIATICA [id number] 01/11/2017 15:14:00 01/11/2017 17:26:00 DIS Emergency DOMINGO OROSCO APRN [facility] ER L LEG SWELLING, PAIN, HX OF BLOOD CLOTS [id number] 01/01/2017 06:50:00 01/01/2017 10:04:00 DIS Outpatient FLORINDA KU DO [facility] ENDO COPD [id number] 12/30/2016 05:41:00 12/30/2016 13:55:00 DIS Outpatient FLORINDA KU DO [facility] PREOP COPD [id number] 12/11/2016 10:48:00 12/11/2016 23:59:59 CLS Outpatient BOYD SOLIS APRN [facility] RAD DYSPNEA [id number] 03/27/2016 11:59:00 03/29/2016 11:30:00 DIS Inpatient THUY TSANG DO [facility] 4TH PNEUMONIA,SEPSIS,UTI, IMMUNO COMPROMISED STATE [id number] 02/27/2015 08:50:00 02/27/2015 10:57:00 DIS Emergency FERNANDO EVANS, TOREY Parks [facility] ER HEAD INJ
[2018-11-11 18:11] LABS: BASOPHILS % (AUTO) 0 % (0-10); EOSINOPHILS % (AUTO) 0 % (0-10); HEMATOCRIT 34 % (35-52); HEMOGLOBIN 9.7 G/DL (11.5-16.0); LYMPHOCYTES # (AUTO) 0.2 X 10^3 (1.0-4.0); LYMPHOCYTES % (AUTO) 3 % (12-44); MEAN CORPUSCULAR HEMOGLOBIN 21 PG (25-34); MEAN CORPUSCULAR HGB CONC 28 G/DL (32-36); MEAN CORPUSCULAR VOLUME 73 FL (80-99); MEAN PLATELET VOLUME 9.6 FL (7.4-10.4); MONOCYTES # (AUTO) 0.3 X 10^3 (0.0-1.0); MONOCYTES % (AUTO) 4 % (0-12); NEUTROPHILS # (AUTO) 7.2 X 10^3 (1.8-7.8); NEUTROPHILS % (AUTO) 93 % (42-75); PLATELET COUNT 361 10^3/uL (130-400); RED BLOOD COUNT 4.71 10^6/uL (4.35-5.85); RED CELL DISTRIBUTION WIDTH 18.8 % (10.0-14.5); WHITE BLOOD COUNT 7.7 10^3/uL (4.3-11.0)
[2018-11-11] MEDS ORDERED: ONDANSETRON 4 MG/2 ML (SDV) Z0FRAN IVP ONE (18:15)
[2018-11-11] MEDS ORDERED: NS IV 1000 ML 1,000 ML IV SCH (18:16)
[2018-11-11 18:35] LABS: BAND NEUTROPHILS 7 %; BASOPHILS % (MANUAL) 0 %; EOSINOPHILS % (MANUAL) 0 %; LYMPHOCYTES % (MANUAL) 5 %; MONOCYTES % (MANUAL) 0 %; NEUTROPHILS % (MANUAL) 88 %; NUCLEATED RED BLOOD CELLS 1
[2018-11-11 18:36] LABS: ALANINE AMINOTRANSFERASE 14 U/L (0-55); ALBUMIN 3.9 GM/DL (3.2-4.5); ALKALINE PHOSPHATASE 55 U/L (40-136); AMYLASE 60 U/L (25-125); BILIRUBIN,TOTAL 0.4 MG/DL (0.1-1.0); BUN/CREATININE RATIO 17; CALCIUM 8.8 MG/DL (8.5-10.1); CARBON DIOXIDE 25 MMOL/L (21-32); CHLORIDE 103 MMOL/L (98-107); CREATININE SERUM 0.92 MG/DL (0.60-1.30); ELLIPT/OVALOCYTES MODERATE; GFR ESTIMATED > 60; GLUCOSE 119 MG/DL (70-105); LIPASE 56 U/L (8-78); POTASSIUM 3.8 MMOL/L (3.6-5.0); SODIUM 140 MMOL/L (135-145); TOTAL PROTEIN 6.6 GM/DL (6.4-8.2)
--- NOTE | 2018-11-11 19:58 | ED GI ---
General Chief Complaint: Abdominal/GI Problems Stated Complaint: N/V/D Nursing Triage Note: PT TO ROOM #1 [facility]IA [facility] CART FROM HOME WITH C/O N/V/D AND ABD PAIN SINCE 0130 THIS AM. IN TRANSIT TO ED [facility] ACCESSED 20G IV TO RT AC AND INFUSED 200ML NS BOLUS. UPON ARRIVAL TO ED PT NOTED TO BE PALE AND A&OX4. PT REPORTS SYMTPOMS BEGAN EARLY THIS AM AND HAS BEEN UNABLE TO KEEP FOOD OF FLUIDS DOWN. PT ALSO REPORTS HEADACHE. PT AFEBRILE WITH TYMPANIC TEMP 99.4. Sepsis Screen: No Definite Risk History of Present Illness Date Seen by Provider: Nov 11, 2018 Time Seen by Provider: 18:00 Initial Comments 63 year old female presents via EMS for nausea, vomiting, and diarrhea since 99 today. She has not taken any medication for the symptoms. She reports approximately 20 episodes of diarrhea today. She reports vomiting just prior to arrival. She denies any family members with similar symptoms. She's had no recent travel. She has generalized abdominal discomfort but no acute pain. Timing/Duration: 24 Hours Severity/Quality: Moderate Location: Generalized Abdomen Radiation: No Radiation Associated Symptoms: No Back Pain; Nausea/Vomiting, Other Allergies and Home Medications Allergies Coded Allergies: NSAIDS (Non-Steroidal Anti-Inflamma (Unverified Allergy, Unknown, 02/27/15) Penicillins (Verified Allergy, Unknown, 03/27/16) Sulfa (Sulfonamide Antibiotics) (Unverified Allergy, Unknown, 02/27/15) cephalexin (Unverified Allergy, Unknown, 02/27/15) codeine (Unverified Allergy, Unknown, 02/27/15) levofloxacin (Unverified Allergy, Unknown, 02/27/15) tramadol (Unverified Allergy, Unknown, 02/27/15) Uncoded Allergies: ENVIRONMENTAL (Allergy, Unknown, 02/27/15) Home Medications Acetaminophen 500 Mg Tablet, 2,000-2,500 MG PO QID PRN for PAIN, (Reported) TAKES 4-5 (500 MG) TABLETS Albuterol Sulfate 1 Puff Puff, 2 PUFF IH Q6H, (Reported) 1 PUFF = 90 MCG Ascorbic Acid 1,000 Mg Tablet, 500 MG PO DAILY, (Reported) Calcium Carbonate/Vitamin D3 1 Each Tablet, 1 TAB PO BID, (Reported) Chlorpheniramine Maleate 4 Mg Tablet, 4 MG PO EVERY 4-6 HOURS PRN for ALLERGIES, (Reported) Docusate Sodium 100 Mg Capsule, 100 MG PO BID, (Reported) Flecainide Acetate 100 Mg Tablet, 50 MG PO BID, (Reported) TAKES 1/2 OF A (100 MG) TABLET Gabapentin 300 Mg Capsule, 600 MG PO TID, (Reported) TAKES 2 (300 MG) TABLETS Hydrocodone Bit/Acetaminophen 1 Each Tablet, 1 EACH PO Q4H PRN for PAIN, ( Reported) Hydroxychloroquine Sulfate 200 Mg Tablet, 200 MG PO BID, (Reported) Ipratropium/Albuterol Sulfate 3 Ml Ampul.neb, 3 ML IH Q4H PRN for SHORTNESS OF BREATH, (Reported) Lorazepam 0.5 Mg Tablet, 0.5 MG PO Q12H, (Reported) Methocarbamol 750 Mg Tablet, 750 MG PO TID PRN for MUSCLE SPASMS, (Reported) Omeprazole Magnesium 20 Mg Tablet.dr, 20 MG PO BID, (Reported) Ondansetron HCl 8 Mg Tablet, 8 MG PO Q6H PRN for NAUSEA/VOMITING-1ST LINE Prescribed by: TIFFANY BLEDSOE on 11/11/182029 Prednisone 5 Mg Tablet, 15 MG PO DAILY, (Reported) TAKES 3 (5 MG) TABLETS Pseudoephedrine HCl 30 Mg Tablet, 60 MG PO Q4H PRN for CONGESTION, (Reported) Trimethoprim 100 Mg Tablet, 300 MG PO Q6H PRN for NAUSEA/VOMITING, (Reported) Patient Home Medication List Home Medication List Reviewed: Yes Review of Systems Review of Systems Constitutional: no symptoms reported, see HPI Gastrointestinal: See HPI, Abdominal Pain, Diarrhea, Nausea, Poor Appetite, Vomiting All Other Systems Reviewed Negative Unless Noted: Yes Past Wyytnrn-Txghwo-Bchdgz Hx Past Med/Social Hx: Reviewed Nursing Past Med/Soc Hx Patient Social History Alcohol Use: Denies Use Recreational Drug Use: No Smoking Status: Never a Smoker 2nd Hand Smoke Exposure: No Recent Foreign Travel: No Contact w/Someone Who Travel: No Recent Infectious Disease Expo: No Recent Hopitalizations: No Physical Abuse: No Sexual Abuse: No Immunizations Up To Date Date of Pneumonia Vaccine: Nov 03, 2015 Date of Influenza Vaccine: Aug 12, 2016 Seasonal Allergies Seasonal Allergies: Yes Past Medical History Surgeries: Yes (LUNG BIOPSY (LEFT), HEART CATH-NO STENTS, IVC FILTER) Abdominal, Adenoidectomy, Gallbladder, Hysterectomy, Tonsillectomy Respiratory: Yes (O2 2L-3L) Pulmonary Embolism, Sleep Apnea Currently Using CPAP: Yes Cardiac: Yes (ARRTHMYIA, PULMONARY HYPERTENTION ) Deep Vein Thrombosis, Hypertension Neurological: Yes (SINUS RELATED) Headaches /Migraines Reproductive Disorders: No 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 Sexually Transmitted Disease: No HIV/AIDS: No Gastrointestinal: Yes Gastroesophageal Reflux, Chronic Constipation Musculoskeletal: Yes (Lupus ) Arthritis, Fibromyalgia Endocrine: Yes (DM - PREDNISONE RELATED ) Lupus Loss of Vision: Bilateral Hearing Impairment: Denies Cancer: No Psychosocial: Yes Anxiety, Depression Integumentary: No Blood Disorders: No (ANEMIA) Adverse Reaction/Blood Tranf: No Family Medical History Hypertension Myocardial infarction Physical Exam Vital Signs Vital Signs - First Documented 11/11/18 17:56 Temp 99.4 Pulse 89 Resp 18 B/P (MAP) 125/53 (77) Pulse Ox 100 O2 Delivery Nasal Cannula O2 Flow Rate 2.00 Capillary Refill : Less Than 3 Seconds Height/Weight/BMI Height: 5'6.00" Weight: 210lbs. 0.0oz. [id number]; 34.7 BMI Method:Stated General Appearance: WD/WN, no apparent distress HEENT: PERRL/EOMI, normal ENT inspection, TMs normal, pharynx normal, other ( Oral mucosa pale and dry. ) Neck: non-tender, full range of motion, supple, normal inspection Respiratory: chest non-tender, lungs clear, normal breath sounds Cardiovascular: normal peripheral pulses, regular rate, rhythm, no edema, no murmur Gastrointestinal: normal bowel sounds, soft, no organomegaly, distended; No guarding, No rebound; tenderness (generalized); No mass Extremities: normal range of motion, non-tender, normal inspection, no pedal edema, normal capillary refill Neurologic/Psychiatric: no motor/sensory deficits, alert, normal mood/affect, oriented x 3 Skin: normal color, warm/dry, other (skin turgor less than 3 sec. ) Progress/Results/Core Measures Results/Orders Lab Results Laboratory Tests Test 11/11/18 18:00 11/11/18 19:35 Range/Units White Blood Count 7.7 4.3-11.0 10^3/uL Red Blood Count 4.71 4.35-5.85 10^6/uL Hemoglobin 9.7 L 11.5-16.0 G/DL Hematocrit 34 L 35-52 % Mean Corpuscular Volume 73 L 80-99 FL Mean Corpuscular Hemoglobin 21 L 25-34 PG Mean Corpuscular Hemoglobin Concent 28 L 32-36 G/DL Red Cell Distribution Width 18.8 H 10.0-14.5 % Platelet Count 361 130-400 10^3/uL Mean Platelet Volume 9.6 7.4-10.4 FL Neutrophils (%) (Auto) 93 H 42-75 % Lymphocytes (%) (Auto) 3 L 12-44 % Monocytes (%) (Auto) 4 0-12 % Eosinophils (%) (Auto) 0 0-10 % Basophils (%) (Auto) 0 0-10 % Neutrophils # (Auto) 7.2 1.8-7.8 X 10^3 Lymphocytes # (Auto) 0.2 L 1.0-4.0 X 10^3 Monocytes # (Auto) 0.3 0.0-1.0 X 10^3 Eosinophils # (Auto) 0.0 0.0-0.3 10^3/uL Basophils # (Auto) 0.0 0.0-0.1 10^3/uL Neutrophils % (Manual) 88 % Lymphocytes % (Manual) 5 % Monocytes % (Manual) 0 % Eosinophils % (Manual) 0 % Basophils % (Manual) 0 % Band Neutrophils 7 % Nucleated Red Blood Cells 1 Elliptocytes MODERATE Sodium Level 140 135-145 MMOL/L Potassium Level 3.8 3.6-5.0 MMOL/L Chloride Level 103 98-107 MMOL/L Carbon Dioxide Level 25 21-32 MMOL/L Anion Gap 12 5-14 MMOL/L Blood Urea Nitrogen 16 7-18 MG/DL Creatinine 0.92 0.60-1.30 MG/DL Estimat Glomerular Filtration Rate > 60 BUN/Creatinine Ratio 17 Glucose Level 119 H 70-105 MG/DL Calcium Level 8.8 8.5-10.1 MG/DL Corrected Calcium 8.9 8.5-10.1 MG/DL Total Bilirubin 0.4 0.1-1.0 MG/DL Aspartate Amino Transf (AST/SGOT) 13 5-34 U/L Alanine Aminotransferase (ALT/SGPT) 14 0-55 U/L Alkaline Phosphatase 55 40-136 U/L Total Protein 6.6 6.4-8.2 GM/DL Albumin 3.9 3.2-4.5 GM/DL Amylase Level 60 25-125 U/L Lipase 56 8-78 U/L Urine Color YELLOW Urine Clarity CLEAR Urine pH 6 5-9 Urine Specific Newell 1.020 1.016-1.022 Urine Protein 2+ H NEGATIVE Urine Glucose (UA) NEGATIVE NEGATIVE Urine Ketones 1+ H NEGATIVE Urine Nitrite NEGATIVE NEGATIVE Urine Bilirubin NEGATIVE NEGATIVE Urine Urobilinogen NORMAL NORMAL MG/DL Urine Leukocyte Esterase 1+ H NEGATIVE Urine RBC (Auto) NEGATIVE NEGATIVE Urine RBC NONE /HPF Urine WBC 0-2 /HPF Urine Squamous Epithelial Cells 0-2 /HPF Urine Crystals NONE /LPF Urine Bacteria TRACE /HPF Urine Casts NONE /LPF Urine Mucus SMALL H /LPF Urine Culture Indicated NO My Orders Orders - TIFFANY BLEDSOE Comprehensive Metabolic Panel (11/11/18 18:05) Lipase (11/11/18 18:05) Amylase (11/11/18 18:05) Ua Culture If Indicated (11/11/18 18:05) Cbc With Automated Diff (11/11/18 18:05) Ondansetron Injection (Zofran Injectio (11/11/18 18:15) Manual Differential (11/11/18 18:00) Saline Lock/Iv-Start (11/11/18 18:16) Ns Iv 1000 Ml (Sodium Chloride 0.9%) (11/11/18 18:16) Rx-Ondansetron Po (Rx-Zofran Po) (11/11/18 20:17) Medications Given in ED Current Medications Medications Dose Ordered Sig/Nata Route Start Time Stop Time Status Last Admin Dose Admin Ondansetron HCl 8 mg ONCE ONCE IVP 11/11/18 18:15 11/11/18 18:16 DC 11/11/18 18:35 8 MG Vital Signs/I&O 11/11/18 17:56 Temp 99.4 Pulse 89 Resp 18 B/P (MAP) 125/53 (77) Pulse Ox 100 O2 Delivery Nasal Cannula O2 Flow Rate 2.00 Blood Pressure Mean: 77 Progress Progress Note : Time: 18:00 Progress Note Patient seen and evaluated, will obtain labs, Zofran 8 mg IV and normal saline 1 L started per EMS, will infuse this and start a second liter. 1900 Labs WNL, patient reports improvement. Has not given UA yet. 2000 agent taking ice chips, no nausea vomiting or diarrhea since admission to the emergency department. 2014 discharge planning and return precautions reviewed with the patient all questions answered. Departure Impression Primary Impression: Nausea vomiting and diarrhea Disposition: HOME, SELF-CARE Condition: Improved Departure-Patient Inst. Decision time for Depature: 20:00 Referrals: SANTOSH FROSTP (PCP/Family) Primary Care Physician Patient Instructions: Acute Abdomen (Belly Pain), Adult (DC), Diarrhea and Traveler's Diarrhea, Adult (DC), Nausea and Vomiting, Adult (DC) Add. Discharge Instructions: Clear liquid diet for the next 6-8 hours. Then advance diet with bland foods for 24 hours. Use Zofran every 6-8 hours as needed for nausea and vomiting. Follow-up with your primary care provider in 2-3 days if symptoms are not improving or worsen. Over the counter anit-diarrheal medicine as needed. Return to emergency department for persistent nausea vomiting and diarrhea, fever greater than 101 or new problems. All discharge instructions reviewed with patient and/or family. Voiced understanding. Scripts Ondansetron HCl (Zofran) 8 Mg Tablet 8 MG PO Q6H PRN for NAUSEA/VOMITING-1ST LINE, #12 TAB 0 Refills Prov: TIFFANY BLEDSOE 11/11/18 TIFFANY BLEDSOE Nov 11, 2018 19:58
[2018-11-11 19:59] LABS: BILIRUBIN,URINE NEGATIVE (NEGATIVE); GLUCOSE, URINE (UA) NEGATIVE (NEGATIVE); KETONES,URINE 1+ (NEGATIVE); LEUKOCYTE ESTERASE ,URINE 1+ (NEGATIVE); NITRITE,URINE NEGATIVE (NEGATIVE); PH,URINE 6 (5-9); PROTEIN,URINE 2+ (NEGATIVE); UROBILINOGEN,URINE NORMAL (NORMAL)
[2018-11-11 20:00] LABS: BACTERIA,URINE TRACE /HPF; CLARITY,URINE CLEAR; COLOR,URINE YELLOW; SQUAMOUS EPITHELIAL CELL,UR 0-2 /HPF; WBC,URINE 0-2 /HPF
[2018-11-11] MEDS ORDERED: RX-ONDANSETRON 4 MG ODT (ZOFRAN) PPK #4 PO STA (20:17)
[2018-11-11] MEDS ORDERED: ONDA8TAB6 PO (20:30)
[2018-11-11 20:36] VITALS: BP 118/56
== END 2018-11-11 20:36 | disposition home or self-care (01) ==
LOC: EDUNIT# 17:53 → ER 17:54
DX: R11.2 Nausea with vomiting, unspecified (principal); R19.7 Diarrhea, unspecified; G47.30 Sleep apnea, unspecified; G43.909 Migraine, unspecified, not intractable, without status migrainosus; I10 Essential (primary) hypertension; K21.9 Gastro-esophageal reflux disease without esophagitis; E11.9 Type 2 diabetes mellitus without complications; M32.9 Systemic lupus erythematosus, unspecified; F41.9 Anxiety disorder, unspecified; F32.9 Major depressive disorder, single episode, unspecified; D64.9 Anemia, unspecified; Z87.19 Personal history of other diseases of the digestive system; Z86.718 Personal history of other venous thrombosis and embolism; Z88.0 Allergy status to penicillin; Z88.6 Allergy status to analgesic agent; Z82.49 Family history of ischemic heart disease and other diseases of the circulatory system; Z88.5 Allergy status to narcotic agent; Z88.2 Allergy status to sulfonamides; Z88.8 Allergy status to other drugs, medicaments and biological substances; Z79.51 Long term (current) use of inhaled steroids; Z79.52 Long term (current) use of systemic steroids; Z90.89 Acquired absence of other organs; Z90.710 Acquired absence of both cervix and uterus; Z86.711 Personal history of pulmonary embolism
CPT/HCPCS: 36415; 80053; 81000; 82150; 83690; 85007; 85025; 85027; 96361; 96374

== ENCOUNTER 2019-04-22 12:32 | Emergency (ER) | payer MEDICARE, OTHER ==
[~2019-04-22] VITALS: Ht 165.1 cm; Wt 93.4 kg
[~2019-04-22 12:32] MED LIST changes: +ONDA8TAB6 PO
--- NOTE | 2019-04-22 14:29 | Diagnostic Imaging Report ---
PROCEDURE: CT chest without contrast. TECHNIQUE: Multiple contiguous axial images were obtained through the chest without the use of intravenous contrast. Auto Exposure Controls were utilized during the CT exam to meet ALARA standards for radiation dose reduction. INDICATION: Fall with anterior right rib pain as well as left posterior rib pain. Correlation is made with prior CT chest from 12/11/2016. No mediastinal hematoma is seen. No pericardial or pleural effusion identified. No parenchymal contusion or pneumothorax is identified. Interstitial changes both lungs appears similar to prior study. Evaluation of bony structures does show a healed fracture of the right fourth lateral rib as well as an ununited fracture of the anterior right fifth rib, right sixth and seventh lateral rib healed fractures are also noted. No acute rib fracture is seen. There is also healed left posterior ninth rib fracture as well as left posterior 11th rib fracture. No acute left rib fracture is seen. The upper abdomen demonstrates a filter in IVC. IMPRESSION: 1. Stable interstitial fibrotic changes in both lungs since study from 12/11/2016. 2. Bilateral healed rib fractures. No acute rib fractures detected. Dictated by: Dictated on workstation # [id number]
[2019-04-22 14:54] VITALS: BP 128/70
--- NOTE | 2019-04-22 14:54 | ED General ---
General Chief Complaint: General Problems/Pain Stated Complaint: FALL Nursing Triage Note: Pt ambulatory to ED with multiple complaints. Pt reports falling prone primarily on the R side on April 13. Pt c/o R sided rib pain. Pt also c/o L sided back and shoulder pain that is radiating from head down. Pt reports pain on inspiration and nausea. Nursing Sepsis Screen: No Definite Risk Source of Information: Patient, Old Records Exam Limitations: No Limitations History of Present Illness Date Seen by Provider: Apr 22, 2019 Time Seen by Provider: 12:40 Initial Comments This 64-year-old woman presents to the emergency room with primary complaint of persistent pain since having a fall on April 13. The mechanism of fall was due to missing the last step off of her patio. She fell onto her right side but complains mainly of pain on the left lateral chest and left upper back near the shoulder. She was having pain in the upper back prior to the fall but it is worse now. Her pain is worse with movement and certain positions. It also is painful with inspiration. She denies any head or neck injury. There was no loss of consciousness. Patient is anticoagulated with warfarin. Allergies and Home Medications Allergies Coded Allergies: NSAIDS (Non-Steroidal Anti-Inflamma (Unverified Allergy, Unknown, 02/27/15) Penicillins (Verified Allergy, Unknown, 03/27/16) Sulfa (Sulfonamide Antibiotics) (Unverified Allergy, Unknown, 02/27/15) cephalexin (Unverified Allergy, Unknown, 02/27/15) codeine (Unverified Allergy, Unknown, 02/27/15) levofloxacin (Unverified Allergy, Unknown, 02/27/15) tramadol (Unverified Allergy, Unknown, 02/27/15) Uncoded Allergies: ENVIRONMENTAL (Allergy, Unknown, 02/27/15) Home Medications Acetaminophen 500 Mg Tablet, 2,000-2,500 MG PO QID PRN for PAIN, (Reported) TAKES 4-5 (500 MG) TABLETS Acyclovir 800 Mg Tablet, 800 MG PO UD Prescribed by: TOREY PÉREZ on 04/22/19 1455 Albuterol Sulfate 1 Puff Puff, 2 PUFF IH Q6H, (Reported) 1 PUFF = 90 MCG Ascorbic Acid 1,000 Mg Tablet, 500 MG PO DAILY, (Reported) Calcium Carbonate/Vitamin D3 1 Each Tablet, 1 TAB PO BID, (Reported) Chlorpheniramine Maleate 4 Mg Tablet, 4 MG PO EVERY 4-6 HOURS PRN for ALLERGIES, (Reported) Docusate Sodium 100 Mg Capsule, 100 MG PO BID, (Reported) Flecainide Acetate 100 Mg Tablet, 50 MG PO BID, (Reported) TAKES 1/2 OF A (100 MG) TABLET Gabapentin 300 Mg Capsule, 600 MG PO TID, (Reported) TAKES 2 (300 MG) TABLETS Hydrocodone Bit/Acetaminophen 1 Each Tablet, 1 EACH PO Q4H PRN for PAIN, (Report ed) Hydroxychloroquine Sulfate 200 Mg Tablet, 200 MG PO BID, (Reported) Ipratropium/Albuterol Sulfate 3 Ml Ampul.neb, 3 ML IH Q4H PRN for SHORTNESS OF BREATH, (Reported) Lidocaine 1 Each Adh..patch, 1 EACH TP DAILY May leave on for up to 12 hours per day. Prescribed by: TOREY PÉREZ on 04/22/19 145 Lorazepam 0.5 Mg Tablet, 0.5 MG PO Q12H, (Reported) Methocarbamol 750 Mg Tablet, 750 MG PO TID PRN for MUSCLE SPASMS, (Reported) Omeprazole Magnesium 20 Mg Tablet.dr, 20 MG PO BID, (Reported) Ondansetron HCl 8 Mg Tablet, 8 MG PO Q6H PRN for NAUSEA/VOMITING-1ST LINE Prescribed by: TIFFANY BLEDSOE on 11/11/182029 Oxycodone HCl/Acetaminophen 1 Each Tablet, 1 TAB PO Q4H Prescribed by: TOREY PÉREZ on 04/22/19 145 Prednisone 5 Mg Tablet, 15 MG PO DAILY, (Reported) TAKES 3 (5 MG) TABLETS Pseudoephedrine HCl 30 Mg Tablet, 60 MG PO Q4H PRN for CONGESTION, (Reported) Trimethoprim 100 Mg Tablet, 300 MG PO Q6H PRN for NAUSEA/VOMITING, (Reported) Patient Home Medication List Home Medication List Reviewed: Yes Review of Systems Review of Systems Constitutional: no symptoms reported EENTM: no symptoms reported Respiratory: see HPI Cardiovascular: no symptoms reported Gastrointestinal: no symptoms reported Genitourinary: no symptoms reported : No Musculoskeletal: see HPI Skin: no symptoms reported Psychiatric/Neurological: No Symptoms Reported Hematologic/Lymphatic: See HPI Immunological/Allergic: no symptoms reported Past Hxoshus-Duedcl-Ipbouo Hx Past Med/Social Hx: Reviewed and Corrections made Patient Social History Alcohol Use: Occasionally Uses Recreational Drug Use: No Smoking Status: Never a Smoker 2nd Hand Smoke Exposure: No Recent Foreign Travel: No Contact w/Someone Who Travel: No Recent Infectious Disease Expo: No Recent Hopitalizations: No Immunizations Up To Date Date of Pneumonia Vaccine: Nov 03, 2015 Date of Influenza Vaccine: Aug 12, 2016 Seasonal Allergies Seasonal Allergies: Yes Past Medical History Surgeries: Yes (LUNG BIOPSY (LEFT), HEART CATH-NO STENTS, IVC FILTER) Abdominal, Adenoidectomy, Gallbladder, Hysterectomy, Tonsillectomy, Vascular Surgery (IVC filter) Respiratory: Yes (O2 2L-3L) Pulmonary Embolism, Sleep Apnea Currently Using CPAP: Yes Cardiac: Yes (ARRTHMYIA, PULMONARY HYPERTENTION ) Deep Vein Thrombosis, Hypertension Neurological: Yes (SINUS RELATED) Headaches /Migraines : No 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 Sexually Transmitted Disease: No HIV/AIDS: No Gastrointestinal: Yes Gastroesophageal Reflux, Chronic Constipation Musculoskeletal: Yes (Lupus ) Arthritis, Fibromyalgia Endocrine: Yes (DM - PREDNISONE RELATED ) Lupus Loss of Vision: Bilateral Hearing Impairment: Denies Cancer: No Psychosocial: Yes Anxiety, Depression Integumentary: No Blood Disorders: No (ANEMIA) Adverse Reaction/Blood Tranf: No Family Medical History Hypertension Myocardial infarction Physical Exam Vital Signs Vital Signs - First Documented 04/22/19 12:37 Temp 96.9 Pulse 83 Resp 20 B/P (MAP) 132/101 (111) Pulse Ox 95 O2 Delivery Room Air Capillary Refill : Less Than 3 Seconds Height, Weight, BMI Height: 5'5.00" Weight: 206lbs. 0.0oz. 93.530413xt; 34.7 BMI Method:Stated General Appearance: No Apparent Distress, WD/WN HEENT: PERRL/EOMI, Normal ENT Inspection Neck: Normal Inspection, Non Tender Respiratory: Lungs Clear, Normal Breath Sounds, No Accessory Muscle Use, No Respiratory Distress, Other (left lateral chest wall tender to palpation) Cardiovascular: Regular Rate, Rhythm, No Edema, No Murmur Gastrointestinal: Normal Bowel Sounds, Non Tender, Soft Back: Normal Inspection, No Vertebral Tenderness, Other (tenderness in the musculature of the left upper back near the shoulder) Extremity: Normal Inspection, Normal Range of Motion, Non Tender, No Pedal Edema Neurologic/Psychiatric: Alert, Oriented x3, No Motor/Sensory Deficits, Normal 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, 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 Skin: Normal Color, Warm/Dry; No Rash Progress/Results/Core Measures Suspected Sepsis Recent Fever Within 48 Hours: No Infection Criteria Present: None New/Unexplained Altered Menta: No Sepsis Screen: No Definite Risk SIRS Temperature:96.9 Pulse: 83 Respiratory Rate: 20 Blood Pressure 132 /101 Mean: 111 Results/Orders My Orders Orders - TOREY KING MD Ct Chest Wo (04/22/19 12:50) Oxycodone/Apap 5/325mg Tablet (Percocet (04/22/19 15:00) Vital Signs/I&O Capillary Refill : Less Than 3 Seconds Blood Pressure Mean: 111 Progress Note : Progress Note CT was felt the most appropriate way to evaluate patient's thorax and upper back, this would identify rib fracture, pulmonary contusion, hemopneumothorax, pneumonia, etc. as possible sources of pain. CT was obtained and was unremarkable. We discussed options for pain management. Hydrocodone tends to make the patient itch. She will try Percocet. She has an allergy to Ultram and cannot take NSAIDs due to warfarin use. We also discussed trying lidocaine patches. 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 Patient has had shingles in the past and is concerned this pain may represent shingles. She requested empiric treatment with acyclovir which was provided. Departure Impression Primary Impression: Chest wall pain Additional Impressions: Upper back pain Fall on stairs Qualified Codes: W10.9XXA - Fall (on) (from) unspecified stairs and steps, initial encounter Disposition: 01 HOME, SELF-CARE Condition: Improved Departure-Patient Inst. Decision time for Depature: 14:40 Referrals: ASNTOSH FROSTP (PCP/Family) Primary Care Physician Patient Instructions: Chest Pain That Is Not Caused by the Heart (DC) Add. Discharge Instructions: You may continue using hydrocodone as previously prescribed or substitute Percocet (oxycodone). For itching associated with opioids such as hydrocodone or Percocet you may try a nondrowsy antihistamine such as loratadine (Claritin) or cetirizine (Zyrtec). Benadryl is a good alternative as well but may cause drowsiness. Return to care if you have worsening symptoms or call your doctor. Follow-up with your doctor within the next week if symptoms persist. All discharge instructions reviewed with patient and/or family. Voiced understanding. Scripts Acyclovir (Acyclovir) 800 Mg Tablet 800 MG PO UD, #35 TAB Prov: TOREY KING MD 04/22/19 Lidocaine (Lidocare) 1 Each Adh..patch 1 EACH TP DAILY, #20 PATCH May leave on for up to 12 hours per day. Prov: TOREY KING MD 04/22/19 Oxycodone HCl/Acetaminophen (Percocet 5-325 mg Tablet) 1 Each Tablet 1 TAB PO Q4H for PAIN-MODERATE MDD 6 TABS, #10 TAB Prov: TOREY KING MD 04/22/19 Work/School Note: Work Release Form Date Seen in the Emergency Department: Apr 22, 2019 Return to Work: Apr 23, 2019 Restrictions: No Restrictions TOREY KING MD Apr 22, 2019 14:54
[2019-04-22] MEDS ORDERED: ACYC800T PO (14:55)
[2019-04-22] MEDS ORDERED: OXYC1TAB87 PO (14:55)
[2019-04-22] MEDS ORDERED: LIDO1ADH41 TP (14:55)
[2019-04-22] MEDS ORDERED: oxyCODONE/APAP 5/325MG (PERCOCET 5) TABLET PO ONE (15:00)
== END 2019-04-22 15:00 | disposition home or self-care (01) ==
LOC: EDUNIT# 12:32 → ER 12:33
DX: R07.89 Other chest pain (principal); M54.6 Pain in thoracic spine; G47.30 Sleep apnea, unspecified; I10 Essential (primary) hypertension; G43.909 Migraine, unspecified, not intractable, without status migrainosus; D64.9 Anemia, unspecified; K21.9 Gastro-esophageal reflux disease without esophagitis; M79.7 Fibromyalgia; M32.9 Systemic lupus erythematosus, unspecified; E11.9 Type 2 diabetes mellitus without complications; F41.9 Anxiety disorder, unspecified; F32.9 Major depressive disorder, single episode, unspecified; Z82.49 Family history of ischemic heart disease and other diseases of the circulatory system; Z87.19 Personal history of other diseases of the digestive system; Z86.718 Personal history of other venous thrombosis and embolism; Z99.81 Dependence on supplemental oxygen; Z88.6 Allergy status to analgesic agent; Z88.0 Allergy status to penicillin; Z88.1 Allergy status to other antibiotic agents; Z88.5 Allergy status to narcotic agent; Z88.2 Allergy status to sulfonamides; Z88.8 Allergy status to other drugs, medicaments and biological substances; Z79.52 Long term (current) use of systemic steroids; Z95.9 Presence of cardiac and vascular implant and graft, unspecified; Z90.89 Acquired absence of other organs; Z98.890 Other specified postprocedural states; Z90.710 Acquired absence of both cervix and uterus; Z95.828 Presence of other vascular implants and grafts; Z86.711 Personal history of pulmonary embolism; W10.8XXA Fall (on) (from) other stairs and steps, initial encounter
CPT/HCPCS: 71250

== ENCOUNTER 2020-08-23 05:52 | Outpatient (CLI) | payer MEDICARE, OTHER ==
[~2020-08-23] VITALS: Ht 165 cm; Wt 94.5 kg
[~2020-08-23 05:52] MED LIST changes: +ACYC800T PO; +ASCO100024 PO; -ASCO10006 PO; +LIDO1ADH41 TP; +OXYC1TAB87 PO
[2020-08-23] MEDS ORDERED: GABA300C PO (14:03)
== END 2020-08-23 14:52 | disposition home or self-care (01) ==
LOC: PREOP 05:52
PROVIDERS: ATTEND Specialist
DX: Z01.818 Encounter for other preprocedural examination (principal)

== ENCOUNTER 2020-08-25 07:48 | Day surgery (SDC) | payer MEDICARE, OTHER ==
[~2020-08-25] VITALS: Ht 165 cm; Wt 94.5 kg
[~2020-08-25 07:48] MED LIST changes: +GABA300C PO
[2020-08-25] MEDS ORDERED: TROPICAMIDE 1% OPH SOLN (MYDRIACYL) 15 ML BTL OU PRN (08:00)
[2020-08-25] MEDS ORDERED: PHENYLEPHRINE 10% OPHTH (NEO-SYN) 5 ML BTL OU PRN (08:00)
[2020-08-25] MEDS: TETRACAINE 0.5% OPHTH SOLN 4 ML BTL (SINGLE DOSE ONLY) OU PRN ×3 (08:12→08:25)
[2020-08-25 08:15] VITALS: BP 137/84
[2020-08-25] MEDS ORDERED: MIDAZOLAM 2 MG/2 ML (VERSED) VIAL ONE (08:56)
[2020-08-25 09:00] VITALS: BP 137/84
--- NOTE | 2020-08-25 09:13 | Ophthalmologist Pre-Op Note ---
Pre-Operative Progress Note H&P Reviewed The H&P was reviewed, patient examined and no changes noted. Date H&P Reviewed: Aug 25, 2020 Time H&P Reviewed: 08:51 Pre-Op Dx Secondary Cataract, Right Eye RON KAYE MD Aug 25, 2020 09:13
--- NOTE | 2020-08-25 09:14 | Ophthalmology Operative Report ---
YAG Capsulotomy PREOPERATIVE DIAGNOSIS: Secondary Cataract Right Eye POSTOPERATIVE DIAGNOSIS: Secondary Cataract Right Eye PROCEDURE: YAG Capsulotomy, right eye SURGEON: Celso Kaye ANESTHESIA: Topical anesthesia COMPLICATIONS: None ESTIMATED BLOOD LOSS: Minimal DESCRIPTION OF PROCEDURE: After proper informed consent was obtained, the patient's, a 65 female, right eye received one drop of Tropicamide and one drop of Tetracaine. The patient was then placed at the YAG laser and using a power of [4.0 ] millijoules and [ 17] bursts were used to fashion a central capsulotomy. The patient tolerated the procedure well without complications. CELSO KAYE MD Aug 25, 2020 09:14
== END 2020-08-25 09:00 | disposition home or self-care (01) ==
LOC: SDC 07:48
PROVIDERS: ATTEND Specialist
DX: H26.491 Other secondary cataract, right eye (principal); F41.9 Anxiety disorder, unspecified; F32.9 Major depressive disorder, single episode, unspecified; E11.36 Type 2 diabetes mellitus with diabetic cataract; D64.9 Anemia, unspecified; Z79.899 Other long term (current) drug therapy; Z88.0 Allergy status to penicillin; Z88.5 Allergy status to narcotic agent; Z88.2 Allergy status to sulfonamides; Z88.8 Allergy status to other drugs, medicaments and biological substances; Z90.710 Acquired absence of both cervix and uterus; Z80.1 Family history of malignant neoplasm of trachea, bronchus and lung

== ENCOUNTER 2021-10-17 09:26 | Outpatient (RCR) | payer MEDICARE, OTHER ==
[~2021-10-17 09:26] MED LIST changes: +ACYC-112 PO; -ACYC800T PO; -DOXY100C2 PO; +DOXY100C5 PO; +METH-732 PO; -METH750T3 PO
== END 2021-11-02 | disposition home or self-care (01) ==
LOC: CR 09:26
PROVIDERS: ATTEND Internal Medicine Interventional Cardiology
DX: Z95.2 Presence of prosthetic heart valve (principal)
CPT/HCPCS: 93798

== ENCOUNTER 2021-11-21 11:14 | Outpatient (RCR) | payer MEDICARE, OTHER | END 2021-12-03 | disposition home or self-care (01) | LOC: CR 11:14 | PROVIDERS: ATTEND Internal Medicine Interventional Cardiology | DX: Z95.2 Presence of prosthetic heart valve (principal) | CPT/HCPCS: 93798 ==

== ENCOUNTER 2021-12-24 11:15 | Outpatient (RCR) | payer MEDICARE, OTHER | END 2021-12-31 | disposition home or self-care (01) | LOC: CR 11:15 | PROVIDERS: ATTEND Internal Medicine Interventional Cardiology | DX: Z29.8 Encounter for other specified prophylactic measures (principal); Z95.2 Presence of prosthetic heart valve | CPT/HCPCS: 93798 ==

== ENCOUNTER 2022-01-23 14:03 | Outpatient (RCR) | payer MEDICARE, OTHER | END 2022-01-31 | disposition home or self-care (01) | LOC: CR 14:03 | PROVIDERS: ATTEND Internal Medicine Interventional Cardiology | DX: Z29.8 Encounter for other specified prophylactic measures (principal); Z95.2 Presence of prosthetic heart valve | CPT/HCPCS: 93798 ==

== ENCOUNTER 2022-03-01 11:11 | Outpatient (RCR) | payer MEDICARE, OTHER | END 2022-03-02 | disposition home or self-care (01) | LOC: CR 11:11 | PROVIDERS: ATTEND Internal Medicine Interventional Cardiology | DX: Z95.2 Presence of prosthetic heart valve (principal) | CPT/HCPCS: 93798 ==

== ENCOUNTER 2022-03-18 14:22 | Outpatient (RCR) | payer MEDICARE, OTHER | END 2022-04-02 | disposition home or self-care (01) | LOC: CR 14:22 | PROVIDERS: ATTEND Internal Medicine Interventional Cardiology | DX: Z29.8 Encounter for other specified prophylactic measures (principal) | CPT/HCPCS: 93798 ==